=== PATIENT | female | born 1965 | race African-American/Black ===

== ENCOUNTER 2024-10-02 08:52 | Outpatient (CLI) | payer MEDICARE, MEDICAID, SELFPAY ==
--- NOTE | 2024-10-02 09:47 | ECG_ITS ---
Test Date: 2024-10-02 10:19:50 Measurements Intervals Perry Rate: 91 P: 21 VA: 160 QRS: -5 QRSD: 75 T: 11 QT: 369 QTc: 455 Interpretive Statements SINUS RHYTHM NONSPECIFIC T-WAVE ABNORMALITY No previous ECG available for comparison Electronically Signed On 10-02-2024 14:44:15 REALTIME REPORTER by Keyonna Pace M.D.
[2024-10-02 10:40] LABS: Hemoglobin 12.6 g/dL (12.0-15.0); Mean Corpuscular HGB Conc 31.5 g/dl (32-36); Mean Corpuscular Hemoglobin 29.6 pg (26-34); Mean Corpuscular Volume 94.1 fl (80-100); Mean Platelet Volume 11.5 fl (7.4-10.4); Platelet Count Result 177 k/mm3 (150-375); Red Blood Count 4.25 M/mm3 (4.2-5.4); Red Cell Distribution Width 12.9 % (11.5-14.5); White Blood Count 5.1 K/mm3 (4.5-10.0)
[2024-10-02 10:47] LABS: Anion Gap 1 mmol/L (4-12); Blood Urea Nitrogen 12 mg/dL (7-17); Calcium 8.9 mg/dL (8.4-10.2); Carbon Dioxide 33 mmol/L (22-30); Chloride 104 mmol/L (98-107); Estimated Glomerular Filt Rate > 60; Glucose 92 mg/dL (65-110); Potassium 3.9 mmol/L (3.4-5.0); Sodium 138 mmol/L (137-145)
[2024-10-02 10:53] LABS: Add Urine Microscopic? NO; Appearance Urine Clear (Clear); Bilirubin Urine Negative (Negative); Blood Urine Negative (Negative); Color Urine Yellow (Yellow); Glucose Urine UA Negative (Negative); Ketones Urine Negative (Negative); Leukocyte Esterase Ur Negative LEU/UL (Negative); Nitrate Urine Negative (Negative); Protein Urine Negative (Negative); Specific Grav Ur 1.011 (1.001-1.035)
[2024-10-02 10:59] LABS: Prothrombin Time 13.1 Seconds (11.1-14.7)
[2024-10-02 11:00] LABS: Partial Thromboplastin Time 26.7 Seconds (22.3-36.8)
[2024-10-02 12:03] LABS: Phenytoin Dilantin < 3 ug/mL (10-20)
== END 2024-10-02 08:53 | disposition home or self-care (01) ==
LOC: ANHSURGERY 08:56
PROVIDERS: Anesthesiology; PCP Internal Medicine Infectious Disease; Visit Provider Neurological Surgery
DX: Z01.818 Encounter for other preprocedural examination (principal); G95.9 Disease of spinal cord, unspecified; G40.909 Epilepsy, unspecified, not intractable, without status epilepticus; Z87.891 Personal history of nicotine dependence; Z79.899 Other long term (current) drug therapy
CPT/HCPCS: 36415; 80048; 80185; 81003; 85027; 85610; 85730; 93005

== ENCOUNTER 2024-10-23 14:28 | Inpatient (IN) | payer MEDICARE, MEDICAID, SELFPAY ==
[2024-10-02 09:18] VITALS: BP 118/86; PULSE 96; RESP 16; TEMP 37.2; O2SAT 98; BMI 27.6
--- NOTE | 2024-10-02 09:39 | PC.NURSE ---
Report to the Outpatient Waiting Room, entrance under the green pavilion located off [facility], at time _0800am on date __10/23/24 . Planned Procedure Time: ___1000am .? Time changes happen often and if your time is changed the preop area will call you the afternoon before. - You and your visitor will be asked to self-screen and do not enter if you have any COVID symptoms. Please call surgeon if you need to reschedule. - A mask is optional within the hospital at this time. Patients may have clear liquids (water, carbonated beverages, clear teas, apple juice) until 3 hours prior to surgery with a maximum of 20 ounces. - No food from midnight until time of surgery and no smoking. This includes no chewing gum, candy or mints. (0700) Take only the following medications with a SIP of water on the morning of surgery: Gabapentin, Dilantin, Levtiracetam, Tizanidine if needed, Tramadol if needed DO NOT STOP ANY OF YOUR OTHER PRESCRIPTION MEDICATIONS PRIOR TO SURGERY EXCEPT THE FOLLOWING Medications to discontinue per physician ____Aspirin instructions per Dr. Woods-Pt will call their office today after testing to clarify. Date to take last dose Per Dr. Woods instructions Please no make-up, nail welsh, hairspray, perfume, deodorant, or body powder the day of surgery.? No jewelry (including any body piercings) or valuables the day of surgery, leave them at home.? Please take a shower or bath the night before, or the morning of, surgery with an antibacterial soap.? Wear comfortable, loose fitting clothing.? - Jewelry must be removed prior to entering the operating room.? Rings and piercings that are not removed may be cut off. - The hospital will not accept responsibility for valuables.? - Please leave all valuables, including medications, at home the day of surgery. If you are going home after surgery, a licensed bobcat driver/labor must drive you home.? - NO public transportation without another adult if you receive anesthesia. PT AWARE SHE NEEDS TO ARRANGE A LEGAL ATOMIC PROCESS ENGINEER RIDE THE DAY OF DC. - We recommend that an adult stay with you for 24 hours following discharge. - We also recommend that you do not drive, make important decision, drink alcoholic beverages, or take any drugs that were not prescribed by your health care provider for at least 24 hours after your discharge time. Follow any additional instructions given to you from your surgeon. Telephone instructions given to __Patient and asked if any additional questions and then verbalized understanding. Patient advised to call surgeon office or pre surgery nurse liaison [phone] if any additional questions.
[2024-10-23] VITALS (11 sets, daily range): BP systolic 107–146; BP diastolic 68–97; PULSE 79–93; RESP 16–20; TEMP 35.8–36.8; O2SAT 96–100; BMI 27.1
--- NOTE | ~2024-10-23 | XR_ITS ---
XR chest 1V portable Ordering provider: Concetta Levine MD History: 59 years Female with . Fever . Comparison: 07/05/2004 FINDINGS: MEDIASTINUM: The cardiac silhouette is not enlarged. LUNGS: No infiltrates, effusions or pneumothorax. OTHER: No free air under the diaphragm. Degenerative changes of the spine. IMPRESSION: No acute cardiopulmonary pathology. Reviewed, dictated and finalized at location A. MAKING MACHINE OPERATOR
--- NOTE | ~2024-10-23 | XR_ITS ---
INTRAOPERATIVE FLUOROSCOPY: CLINICAL HISTORY: 59 years old Female; POSTERIOR CERV DECOMPRESSION FUSION C3-6 PROCEDURE COMMENTS: Limited intraoperative fluoroscopy of the cervical spine was performed. DOSE AREA PRODUCT: .168 Gy-cm2 FLUOROSCOPY TIME: 8 seconds FINDINGS/IMPRESSION: Please refer to operative note for further details. Reviewed, dictated and finalized at location A. NSION ENVELOPE MAKER HAND
--- NOTE | 2024-10-23 08:03 | P.PNAN_ITS ---
Anes - Eval Pre Procedure Procedure: Operation Date: 10/23/24 10:00 Proposed Procedures p Posterior Cervical Decompression and Fusion C3-6 - Concetta Woods MD Date/Time: 10/23/24 08:03 Surgeon: Chuck Pre Op Diagnosis: cervical myelopathy, cervical kyphosis Patient Data Age: 59 Gender: F Height: 1.68 m Weight: 77.6 kg Last Vital Signs Temp 99 F 10/02/24 09:18 Pulse 96 10/02/24 09:18 Resp 16 10/02/24 09:18 BP 118/86 10/02/24 09:18 Pulse Ox 98 10/02/24 09:18 O2 Del Method Room Air 10/02/24 09:18 Allergies Allergy/AdvReac Type Severity Reaction Status Date / Time No Known Allergies Allergy Unknown Verified 10/02/24 09:14 Home Medications ?Medication ?Instructions ?Recorded ?Confirmed ?Type aspirin 81 mg tablet,delayed 81 mg PO DAILY 07/11/24 10/02/24 History release (Adult Low Dose Aspirin) furosemide 20 mg tablet 20 mg PO QAM 07/11/24 10/02/24 History gabapentin 100 mg capsule 100 mg PO TID 07/11/24 10/02/24 History levetiracetam 1,000 mg tablet 1,000 mg PO Q12H 07/11/24 10/02/24 History phenytoin sodium extended 100 mg 100 mg PO TID 07/11/24 10/02/24 History capsule potassium chloride 10 mEq 10 meq PO DAILY 07/11/24 10/02/24 History tablet,extended release rosuvastatin 20 mg tablet 20 mg PO DAILY 07/11/24 10/02/24 History tramadol 50 mg tablet 50 mg PO Q6H PRN pain 07/11/24 10/02/24 History trazodone 50 mg tablet 50 mg PO QHS PRN sleep 07/11/24 10/02/24 History tizanidine 4 mg capsule 4 mg PO TID PRN muscle spasticity 08/28/24 10/02/24 Rx #30 caps Patient hx anesthesia problems: none Family hx anesthesia problems: none Results Review: All pre-operative results and documents have been reviewed as part of the pre- operative evaluation. [facility] Past Medical History Medical History History of smoking Hyperlipidemia Lumbago Epilepsy Cervical myelopathy Cervical kyphosis Stroke Seizure Surgical History Surgical History History of appendectomy History of hysterectomy Family History Family History Mother Hypertension Sibling History of cancer Social History Social History (Updated 08/14/24 @ 15:08 by Char Hamilton CMA) Smoking packs per day: 1 Smoking cigarettes per day: 20.0 Years smoked: 1 Smoking pack-years: 1.00 Smoking status: Former smoker Tobacco type: cigarettes Smoking end date: 10/16/82 Additional smoking assessment comments: Denies Alcohol intake: current Alcohol use details: 1 per 6 mos Substance use: never Substance use type: does not use Do You Feel Safe in your Home?: No Lack of Transportation: No Lack of Food: Often True Current Housing: I Have Housing Concerned About Future Housing: YES Difficulty Paying Gas/Electric Bills: YES Difficulty Paying for Meds: No Currently Unemployed: No Education: High School Diploma/GED Difficulty w/ Childcare or Family Care: No Living arrangements: alone Spiritual care concerns: No Comments SR VR 91 Last seizure / grand mal Exam Day of Procedure 10/23/24 08:03 Patient weight: overweight
[2024-10-23] MEDS: LACTATED RINGERS 1,000 ML 30 ML IV CONT ×2 (09:30→12:50)
--- NOTE | 2024-10-23 09:30 | P.HP_ITS ---
H&P: HPI History of Present Illness Date/Time: 10/23/24 09:30 Chief Complaint: cervical myelopathy Narrative: From 07/11: Ms. Campbell is a 59-year-old female with history of a stroke in 2005 as well as seizures who was referred for stenosis of her cervical spine. The patient has a poor memory and is unaccompanied today. She is unsure why her doctor got the MRI of her cervical spine but does indicate that she occasionally has some neck pain from time to time. However, the imaging was apparently performed due to the patient falling on a more frequent basis because of her legs giving out on her. She does report some balance issues. She has some residual left-sided weakness and paresthesias from her stroke which she denies any worsening of recently. She denies any new radicular pain, paresthesias, or weakness of her right side. She denies any bowel or bladder changes. 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 She is now able to walk unaccompanied. She has had seizures since her stroke for which she takes both Keppra and Dilantin. She apparently is compliant with these medications but continues to have seizures from time to time. This is managed by her primary care physician, although she is scheduled to see a neurologist next month. She lives alone and cares for herself independently. She does seem to have quite a bit of difficulty remembering information about her medical history and her presenting symptoms. She indicated that her has , and while she has several children, some are apparently deployed in and one is recovering from a possible spinal cord injury from a gunshot wound. She does take a baby aspirin daily. She does not smoke. From 08/14: Since her last visit, she reports some worsening of her balance. She does report some urinary urgency and frequency symptoms which are new. She denies any other new symptoms. Review of Systems Review of Systems: All systems reviewed & are unremarkable except as noted in HPI and below PMFSH Past Medical History Medical History (Updated 10/23/24 @ 08:10 by Fred Kohli Jr., CHOIR LEADER) History of smoking Hyperlipidemia Lumbago Epilepsy Cervical myelopathy Cervical kyphosis Stroke Seizure Surgical History Surgical History History of appendectomy History of hysterectomy Family History Family History Mother Hypertension Sibling History of cancer Social History Social History (Updated 08/14/24 @ 15:08 by Char Hamilton CMA) Smoking packs per day: 1 Smoking cigarettes per day: 20.0 Years smoked: 1 Smoking pack-years: 1.00 Smoking status: Former smoker Tobacco type: cigarettes Smoking end date: 10/16/82 Additional smoking assessment comments: Denies Alcohol intake: current Alcohol use details: 1 per 6 mos Substance use: never Substance use type: does not use Do You Feel Safe in your Home?: No Lack of Transportation: No Lack of Food: Often True Current Housing: I Have Housing Concerned About Future Housing: YES Difficulty Paying Gas/Electric Bills: YES Difficulty Paying for Meds: No Currently Unemployed: No Education: High School Diploma/GED Difficulty w/ Childcare or Family Care: No Living arrangements: alone Spiritual care concerns: No Meds Home Medications and Allergies Home Medications ?Medication ?Instructions ?Recorded ?Confirmed ?Type aspirin 81 mg tablet,delayed 81 mg PO DAILY 07/11/24 10/02/24 History release (Adult Low Dose Aspirin) furosemide 20 mg tablet 20 mg PO QAM 07/11/24 10/02/24 History gabapentin 100 mg capsule 100 mg PO TID 07/11/24 10/02/24 History levetiracetam 1,000 mg tablet 1,000 mg PO Q12H 07/11/24 10/02/24 History phenytoin sodium extended 100 mg 100 mg PO TID 07/11/24 10/02/24 History capsule potassium chloride 10 mEq 10 meq PO DAILY 07/11/24 10/02/24 History tablet,extended release rosuvastatin 20 mg tablet 20 mg PO DAILY 07/11/24 10/02/24 History tramadol 50 mg tablet 50 mg PO Q6H PRN pain 07/11/24 10/02/24 History trazodone 50 mg tablet 50 mg PO QHS PRN sleep 07/11/24 10/02/24 History tizanidine 4 mg capsule 4 mg PO TID PRN muscle spasticity 08/28/24 10/02/24 Rx #30 caps Allergies Allergy/AdvReac Type Severity Reaction Status Date / Time No Known Allergies Allergy Unknown Verified 10/23/24 09:25 Exam Narrative: Positive Laguerre's bilaterally Diffuse left-sided weakness 4-/5 AOx4 Decreased sensation to light touch in left face, arm, and leg 3+ patellar reflexes Unless otherwise stated above, the patient's physical exam is as follows: General: -Well developed and well nourished. No a cute distress. Cooperative with exam. Mental status: -Awake and oriented to person, place, an d time. Affect is normal. -Fund of knowledge appropriate -Recent and remote memory are intact -Attention span and concentration appear normal -Language function is normal -There is no evidence of aphasia in conv ersational speech. Cranial nerves: -CN II: Visual morales full to bedside co nfrontation -CN III, IV, : Pupils equal, round, an d reactive to light; extraocular movements, no ptosis, no nystagmus -CN V: Facial sensation intact in V1 thr ough V3 distributions -CN VII: Face symmetric -CN VIII: Hearing intact to conversation al speech -CN IX, X: Palate elevates symmetrically ; normal phonation -CN XI: Symmetric full strength of pollard ocleidomastoid and trapezius muscles -CN XII: Tongue protrudes midline Integumentary: -No obvious skin lesions or masses Motor: -Muscle tone normal without spasticity o f flaccidity. No atrophy. No fasciculations. -No pronator drift -Right upper extremity: deltoid 5/5, bic eps 5/5, triceps 5/5, wrist extensors 5/5, wrist flexors 5/5, intrinsics 5/5 -Left upper extremity: deltoid 5/5, maria fernanda ps 5/5, triceps 5/5, wrist extensors 5/5, wrist flexors 5/5, intrinsics 5/5 -Right lower extremity: iliopsoas 5/5, q uadriceps 5/5, hamstrings 5/5, tibialis anterior 5/5, gastroc-soleus 5/5, EHL 5/5 -Left lower extremity: iliopsoas 5/5, qu adriceps 5/5, hamstrings 5/5, tibialis anterior 5/5, gastroc-soleus 5/5, EHL 5/5 Sensory: -Intact to light touch throughout -Normal proprioception throughout Reflexes: -1-2+ DTR's throughout -No Laguerre's, clonus, or Babinski bilat erally Musculoskeletal: -Symmetric; no deformities, masses or te nderness; no known fractures -Cervical spine: no tenderness to palpat ion, no pain, and normal cervical spine movements. Normal cervical lordosis -Spurling's test negative -Tinel's sign negative -Shoulder: no pain on provocative testin g bilaterally -Elbow: no instability, subluxation, or laxity bilaterally I personally reviewed the MRI cervical spine in PACS which shows severe central stenosis at C3-4 and C4-5. There is a grade 1 spondylolisthesis of C4 on C5 I personally reviewed the CT cervical spine that shows an auto fusion at C4-5 with slight kyphosis throughout the cervical spine Assessment and Plan Assessment and plan (1) Cervical myelopathy: Code(s): G95.9 - Disease of spinal cord, unspecified Status: Acute (2) Cervical kyphosis: Code(s): M40.202 - Unspecified kyphosis, cervical region Status: Acute Plan Ms. Campbell is a 59-year-old female with history of a stroke with residual left- sided deficits as well as seizures who presents with increasing falls and frequency of her legs giving out. She also reports development of urinary urgency and frequency. On physical exam, she does have a Laguerre's reflex bilaterally and hyperreflexia in her lower extremities. She is diffusely weak from her stroke on the left side and has decreased sensation to light touch throughout the left side as well. MRI cervical spine shows severe central stenosis at C3-4 from a disc herniation as well as severe stenosis at C4-[address] cervical spine shows auto fusion at C4-5 anteriorly and along the facets on the left side. Therefore, I would recommend surgery in the form of posterior cervical decompression and fusion C3-6. We reviewed her images together and discussed surgery in detail including risks, expected recovery, and restrictions after surgery. She would like to proceed as discussed. We discussed that the goal of surgery is to prevent her symptoms from worsening.
--- NOTE | 2024-10-23 09:32 | WPDHPUPDATE1 ---
History and Physical Update Update Date/Time: 10/23/24 09:32 History and Physical has been reviewed, including an updated exam of the patient. There are NO changes in the patient's condition. Risks, benefits, and alternatives have been discussed and questions answered. Patient agrees to proceed with procedure.
--- NOTE | 2024-10-23 09:51 | P.PNAN_ITS ---
Anes - Eval Final PreProcedure Day of Procedure 10/23/24 09:51 Patient weight: overweight Heart: regular rate and rhythm Lungs: clear to auscultation and normal air movement Airway: Mallampati scale class II Neurological: alert and oriented and other (Pt had a stroke in the past requiring complete rehab (learning everything again), since the CVA seizures are present ) Last oral intake: >/= 8 hours ASA classification: III Emergent: no Anesthetic plan: proceed Anesthesia type and monitoring: general ETT Results Review: All pre-operative results and documents have been reviewed as part of the pre- operative evaluation. Informed Consent: The patient's anesthetic plan and its attendant risks and benefits were discussed with the patient/family/POA. Questions were solicited and answers provided to the satisfaction of the patient/family/POA.
[2024-10-23] MEDS: ceFAZolin 2 GM/D5W 50 ML 2 GM/50 ML BAG IVPB (09:59)
[2024-10-23] MEDS: BUPIVACAINE/EPINEPHRINE 0.5% 50 ML VIAL 30 ML INFILTRATE (10:51)
--- NOTE | 2024-10-23 12:49 | PM.OP ---
Procedure Note - Brief Procedure Note - Brief Date of procedure: 10/23/24 cervical myelopathy, cervical kyphosis Post-op diagnosis: Same Procedure performed: Posterior cervical arthrodesis C3-6 Cervical laminectomies C3, C4, and C5 Use of C-arm for fluoroscopy Surgeon: Concetta Woods MD Anesthesia: GETA Findings: PCDF C3-6 without complication Estimated blood loss (mL): 50 Drains: Yes Packing: No Pathology: None sent Complications: None Condition: Stable Disposition: PACU
--- NOTE | 2024-10-23 12:56 | W.PM.PROC2 ---
Procedure Note - Detailed Date of Procedure 10/23/24 Pre-op Diagnosis cervical myelopathy, cervical kyphosis Post-op Diagnosis Same Procedure Performed 1. C3, C4, C5, and C6 lateral mass instrumentation 2. C3-4, C4-5, and C5-6 arthrodesis with autograft and allograft 3. C3, C4, and C5 laminectomies 4. Use of C-arm for fluoroscopy Surgeon Concetta Woods MD Real Estate Lawyer [place] Anesthesia General Indications Ms. Campbell is a 59-year-old female with history of a stroke with residual left-sided deficits as well as seizures who presents with increasing falls and frequency of her legs giving out. She also reports development of urinary urgency and frequency. On physical exam, she does have a Laguerre's reflex bilaterally and hyperreflexia in her lower extremities. She is diffusely weak from her stroke on the left side and has decreased sensation to light touch throughout the left side as well. MRI cervical spine shows severe central stenosis at C3-4 from a disc herniation as well as severe stenosis at C4-[address] cervical spine shows auto fusion at C4-5 anteriorly and along the facets on the left side. Therefore, I would recommend surgery in the form of posterior cervical decompression and fusion C3-6. We reviewed her images together and discussed surgery in detail including risks, expected recovery, and restrictions after surgery. She would like to proceed as discussed. We discussed that the goal of surgery is to prevent her symptoms from worsening. Risks include bleeding, pain, infection, CSF leak, spinal cord or nerve damage, pseudoarthrosis, hardware malpositioning, weakness, paresthesias, paralysis, and anesthetic complication. She provided written informed consent to proceed. Description of Procedure The patient was brought to the operating room where endotracheal anesthesia was induced. The [place] headholder was applied, and the patient was transferred to the operating table in the prone position. The head was secured to the bed. All pressure points were padded. The C-arm was used to evaluate the planned incision. The planned surgical site was prepped and draped in usual sterile fashion. Time out was conducted, and local anesthesia was injected. A 10-blade scalpel was used to make the incision. The subcutaneous tissue was dissected with the bovie until the spinous processes were encountered. Self-retaining retractors were placed. A clamp was placed on a spinous process which was confirmed to be the C3 level with the C-arm. The incision was extended inferiorly to better expose down to the inferior level. The muscles were elevated in a subperiosteal fashion to expose the laminae and lateral masses of C3 through C6 bilaterally. The facet joints were exposed and defined with the bovie, and the airplane pilot holes for the lateral mass screws were created with the high-speed drill. On the right side, the hand drill was used to drill through the lateral mass to a depth of 12mm at C3. The trajectory was palpated with a ball-tip probe to ensure where were no breeches in the bone. The drill was then lengthened to 14mm. The 3.0mm tap was then passes. This was repeated at C4, C5, and C6. Bone wax was placed over the screw holes. This was then repeated on the left side at C3, C4, C5, and C6. The left facets of C4 and C5 were autofused, so a portion of this bone was removed with a Leksell in order to allow for accurate placement of the lateral mass screws. We then turned our attention to the laminectomies. The high-speed drill was used to create a trough through the laminae of C3, C4, and C5. The posterior elements were elevated with a Leksell and Kerrison rongeurs, and the bone was passed off to be morselized for autograft. The ligamentum flavum was elevated with the bone. Small residual pieces of ligamentum and bone were removed with the kerrison. The facet joints were decorticated with the drill.? We ensured hemostasis with the bipolar and Floseal. We next turned our attention to the lateral mass screws. The screw trajectories were palpated again with the balltip probe. 14 x 3.5mm screws were placed at each level bilaterally. 50mm rods were placed bilaterally. The set screws were placed which were final tightened. The area was copiously irrigated. The bone and facets were decorticated. Magnetos and morselized autograft were placed lateral to the screws bilaterally and into the facets. A hemovac drain was placed in the epidural space and tunneled inferiorly. The muscle was approximated with 0 vicryl. The fascia was closed with 0 vicryl as well. The dermis was closed with 2-0 and 3-0 vicryl. The skin was closed with running 3-0 nylon. The drain was secured with a nylon as well. Sterile dressings were placed. The patient was then removed from the [place] headholder and returned supine. The patient was extubated and transferred to the PACU in stable condition. Billing codes: 77232, 40516, 63964 x 2, 44372 Estimated Blood Loss 50 Drains Yes Packing No Pathology None sent Complications None Condition Stable Disposition PACU [facility] Billing Surgery - Charge Forward: Surgery Billing
[2024-10-23] MEDS: fentaNYL CITRATE INJ (*CRX) 100 MCG/2 ML VIAL 25 MCG IV PUSH ×2 (13:04→13:13)
[2024-10-23] MEDS: HYDROmorphone HCL INJ (*CRX) 1 MG/ML SYR 0.25 MG IV PUSH ×3 (13:20→13:47)
--- NOTE | 2024-10-23 14:32 | ADMGEN ---
This patient, Nas Campbell, was admitted to Medical Room 257-01. Patient/family oriented to hospital policies and general routines including ID bracelet, bed and alarms, visiting hours, pain management, procedures, bathroom and other care routines, personal items, smoking policy, room service/diet, and visiting hours. Information on how to activate the Rapid Response Team has been discussed. Patient/Family are encouraged to report perceived risks to care and to ask questions if they do not understand what they are told or what they should do.
[2024-10-23] MEDS: SODIUM CHLORIDE 0.9% IV 1,000 ML 100 ML IV CONT (14:55)
[2024-10-23] MEDS: MORPHINE SULFATE (*CRX) 2 MG/ML INJ IV PUSH (14:55)
[2024-10-23] MEDS: ACETAMINOPHEN 500 MG TABLET 1000 MG PO ×2 (16:14→21:32)
[2024-10-23] MEDS: PHENYTOIN SODIUM 100 MG EXTENDED RELEASE CAP PO (16:15)
[2024-10-23] MEDS: GABAPENTIN 100 MG CAPSULE PO (16:15)
[2024-10-23] MEDS: oxyCODONE HCL (*CRX) 5 MG TAB IR 10 MG PO ×2 (16:15→21:53)
[2024-10-23] MEDS: ceFAZolin 1 GM/NS 50 ML 1 GM/50 ML BAG IVPB (18:14)
[2024-10-23] MEDS: DOCUSATE SODIUM 100 MG CAPSULE PO (21:32)
[2024-10-23] MEDS: levETIRAcetam 500 MG TABLET 1000 MG PO (21:33)
[2024-10-24] VITALS: BP 121/74; PULSE 88; RESP 18; TEMP 36.5; O2SAT 97
[2024-10-24] MEDS: ceFAZolin 1 GM/NS 50 ML 1 GM/50 ML BAG IVPB ×3 (01:41→17:01)
[2024-10-24] MEDS: oxyCODONE HCL (*CRX) 5 MG TAB IR 10 MG PO ×5 (01:59→20:18)
[2024-10-24] MEDS: CYCLOBENZAPRINE HCL 10 MG TABLET PO ×2 (02:58→16:24)
[2024-10-24] MEDS: ACETAMINOPHEN 500 MG TABLET 1000 MG PO ×4 (03:03→21:43)
[2024-10-24 04:00] VITALS: BP 131/70; PULSE 64; RESP 18; TEMP 36.3; O2SAT 98
[2024-10-24 07:50] VITALS: BP 148/88; PULSE 89; RESP 16; TEMP 36.3; O2SAT 98
[2024-10-24] MEDS: GABAPENTIN 100 MG CAPSULE PO ×3 (10:16→16:24)
[2024-10-24] MEDS: POTASSIUM CHLORIDE 10 MEQ ER TABLET PO (10:16)
[2024-10-24] MEDS: levETIRAcetam 500 MG TABLET 1000 MG PO ×2 (10:16→20:15)
[2024-10-24] MEDS: ROSUVASTATIN 20 MG TABLET PO (10:17)
[2024-10-24] MEDS: FUROSEMIDE 20 MG TABLET PO (10:17)
[2024-10-24] MEDS: DOCUSATE SODIUM 100 MG CAPSULE PO ×2 (10:17→20:20)
[2024-10-24] MEDS: PHENYTOIN SODIUM 100 MG EXTENDED RELEASE CAP PO ×3 (10:17→16:24)
[2024-10-24 11:50] VITALS: BP 108/70; PULSE 104; RESP 18; TEMP 36.6; O2SAT 99
--- NOTE | 2024-10-24 14:31 | WPDANESPN ---
Anes - Prog Note Post-Op Date/Time: 10/24/24 14:31 Vital Signs: Last Vital Signs Temp 36.3 C L 10/24/24 07:50 Pulse 89 10/24/24 07:50 Resp 16 10/24/24 07:50 BP 148/88 H 10/24/24 07:50 Pulse Ox 98 10/24/24 07:50 O2 Del Method Room Air 10/23/24 20:00 O2 Flow Rate 6 10/23/24 13:35 Pain Score (VAS): 2 I/O: Intake & Output 10/23/24 10/24/24 10/24/24 23:59 07:59 15:59 Intake Total 898.3 50 290 Output Total 1450 1470 Balance -551.7 -1420 290 Patient Feedback: Patient satisfied with anesthetic care.
--- NOTE | 2024-10-24 15:03 | WPDNEUROSGPN ---
Progress Note: A&P Assessment and Plan (1) Cervical myelopathy: Code(s): G95.9 - Disease of spinal cord, unspecified Status: Acute (2) Status post cervical arthrodesis: Code(s): Z98.1 - Arthrodesis status Status: Acute Plan -Remove hemovac drain this afternoon -PT/OT recommend discharge to SNF -She can discharge from my standpoint as soon as she is accepted to a facility -Start DVT ppx tonight -Dressing off tomorrow; she can shower and get her incision wet starting tomorrow -Follow up with me in 2 weeks for suture removal Subjective Date/time seen: 10/24/24 12:30 Interval history: She is doing relatively well today. She had some significant neck pain overnight, but this is improved. The therapist yesterday thought she would benefit from soft collar which she has been wearing and has found helpful. She is eating well. She has been mobilizing with assistance of therapy. She has no specific concerns or complaints today. Review of Systems Review of Systems: All systems reviewed & are unremarkable except as noted in HPI and below Exam Narrative: Alert and oriented Wearing soft collar Small amount of sanguinous drainage on dressing HV 70cc out today Left arm and leg weakness, baseline due to previous stroke Right arm and leg full strength Decreased sensation to light touch throughout left side, also baseline Objective Data Vital Signs Vital Signs: Vital Signs - 24 hr 10/23/24 15:29 10/23/24 15:35 10/23/24 20:00 Temperature 98.1 F Pulse Rate 82 Respiratory Rate 18 Blood Pressure 120/68 Pulse Oximetry 100 Oxygen Delivery Room Air Room Air 10/23/24 20:00 10/24/24 00:00 10/24/24 04:00 Temperature 97.9 F 97.7 F 97.4 F L Pulse Rate 93 88 64 Respiratory Rate 20 18 18 Blood Pressure 124/72 121/74 131/70 Pulse Oximetry 99 97 98 Oxygen Delivery 10/24/24 07:50 Temperature 97.4 F L Pulse Rate 89 Respiratory Rate 16 Blood Pressure 148/88 H Pulse Oximetry 98 Oxygen Delivery Intake/Output Intake/Output: Intake & Output 10/21/24 10/22/24 10/23/24 10/24/24 23:59 23:59 23:59 23:59 Intake Total 948.3 580 Output Total 1500 1470 Balance -551.7 -890 Meds/Results Medications: Active Medications Generic Name Dose Route Start Last Admin Trade Name Freq PRN Reason Stop Dose Admin Acetaminophen 1,000 mg 10/23/24 16:00 10/24/24 10:16 Acetaminophen 500 Mg Tablet PO 1,000 mg Q6H YOBANI Administration Al Hydrox/Mg Hydrox/Simethicone 20 ml 10/23/24 12:50 Mag Hydrox/Al Hydrox/Simeth 30 Ml Udc PO Q4H PRN Indigestion/Heartburn Bisacodyl 10 mg 10/23/24 12:50 Bisacodyl 10 Mg Suppository RECTAL DAILY PRN Constipation Cyclobenzaprine HCl 10 mg 10/23/24 12:50 10/24/24 02:58 Cyclobenzaprine Hcl 10 Mg Tablet PO 10 mg TID PRN Administration Muscle Spasms Docusate Sodium 100 mg 10/23/24 21:00 10/24/24 10:17 Docusate Sodium 100 Mg Capsule PO 100 mg Q12HR YOBANI Administration Furosemide 20 mg 10/24/24 09:00 10/24/24 10:17 Furosemide 20 Mg Tablet PO 20 mg QAM YOBANI Administration Gabapentin 100 mg 10/23/24 17:00 10/24/24 12:41 Gabapentin 100 Mg Capsule PO 100 mg TID YOBANI Administration Cefazolin Sodium 1 gm in 50 mls @ 100 mls/hr 10/23/24 18:00 10/24/24 10:47 Ancef 1 Gm/Ns 50 Ml IVPB Infused Q8H YOBANI Infusion Sodium Chloride 1,000 mls @ 100 mls/hr 10/23/24 12:50 10/23/24 21:00 Normal Saline Iv IV CONT 30 mls/hr .Q10H YOBANI Infusion Levetiracetam 1,000 mg 10/23/24 21:00 10/24/24 10:16 Levetiracetam 500 Mg Tablet PO 1,000 mg Q12HR YOBANI Administration Morphine Sulfate 2 mg 10/23/24 12:50 10/23/24 14:55 Morphine Sulfate (*Crx) 2 Mg/Ml Inj IV PUSH 2 mg Q2H PRN Administration Breakthrough Pain Ondansetron HCl 4 mg 10/23/24 12:50 Ondansetron Inj 4 Mg/2 Ml Vial IV PUSH Q8H PRN Nausea And Vomiting Oxycodone HCl 10 mg 10/23/24 12:50 10/24/24 14:06 Oxycodone Hcl (*Crx) 5 Mg Tab Ir PO 10 mg Q4H PRN Administration Pain Rated 7-10 Oxycodone HCl 5 mg 10/23/24 12:50 Oxycodone Hcl (*Crx) 5 Mg Tab Ir PO Q4H PRN Pain Rated 4-6 Phenytoin Sodium 100 mg 10/23/24 17:00 10/24/24 12:41 Phenytoin Sodium 100 Mg Extended Release Cap PO 100 mg TID YOBANI Administration Potassium Chloride 10 meq 10/24/24 09:00 10/24/24 10:16 Potassium Chloride 10 Meq Er Tablet PO 10 meq DAILY YOBANI Administration Rosuvastatin Calcium 20 mg 10/24/24 09:00 10/24/24 10:17 Rosuvastatin 20 Mg Tablet PO 20 mg DAILY YOBANI Administration Senna/Docusate Sodium 1 tab 10/23/24 12:50 Senna/Docusate Sodium Tablet PO HS PRN Constipation Trazodone HCl 50 mg 10/23/24 12:53 Trazodone Hcl 50 Mg Tablet PO QHS PRN sleep
[2024-10-24 15:50] VITALS: BP 123/78; PULSE 97; RESP 18; TEMP 36.4; O2SAT 95
[2024-10-24 19:43] VITALS: BP 123/75; PULSE 99; RESP 16; TEMP 36.4; O2SAT 99
[2024-10-24] MEDS: traZODone HCL 50 MG TABLET PO (21:46)
[2024-10-25] MEDS: CYCLOBENZAPRINE HCL 10 MG TABLET PO ×2 (00:54→09:08)
[2024-10-25] MEDS: oxyCODONE HCL (*CRX) 5 MG TAB IR 10 MG PO ×5 (02:14→23:18)
[2024-10-25] MEDS: ACETAMINOPHEN 500 MG TABLET 1000 MG PO ×4 (03:57→21:59)
[2024-10-25 05:24] VITALS: BP 125/78; PULSE 114; RESP 16; TEMP 36.7; O2SAT 98
[2024-10-25] MEDS: levETIRAcetam 500 MG TABLET 1000 MG PO ×2 (09:08→20:32)
[2024-10-25] MEDS: GABAPENTIN 100 MG CAPSULE PO ×3 (09:08→17:05)
[2024-10-25] MEDS: PHENYTOIN SODIUM 100 MG EXTENDED RELEASE CAP PO ×3 (09:08→17:05)
[2024-10-25] MEDS: ENOXAPARIN 30 MG/0.3 ML SYRINGE SUB-Q (09:08)
[2024-10-25] MEDS: FUROSEMIDE 20 MG TABLET PO (09:08)
[2024-10-25] MEDS: POTASSIUM CHLORIDE 10 MEQ ER TABLET PO (09:09)
[2024-10-25] MEDS: DOCUSATE SODIUM 100 MG CAPSULE PO ×2 (09:09→20:32)
[2024-10-25] MEDS: ROSUVASTATIN 20 MG TABLET PO (09:09)
--- NOTE | 2024-10-25 09:53 | PCOTNOTE ---
The patient treatment was not able to be completed. Patient reports 10/10 pain. Will plan to continue treatment per plan of care.
--- NOTE | 2024-10-25 10:22 | PCPTNOTE ---
Patient refused treatment this session. Patient reported she wanted to get a shower before working with OT. Patient refused to work with PT before getting a shower.
--- NOTE | 2024-10-25 10:24 | PCPTNOTE ---
Patient refused treatment this session. Patient reported she wanted to get a shower before working with PT. Patient refused to work with PT before she got a shower.
--- NOTE | 2024-10-25 10:30 | WPDNEUROSGPN ---
Progress Note: A&P Assessment and Plan (1) Cervical kyphosis: Code(s): M40.202 - Unspecified kyphosis, cervical region Status: Acute Plan 59 year old female s/p posterior cervical decompression and fusion. Continue PT/OT/mobilization. Okay to shower at this point, but dry the wound after, no bathing or swimming. Dr. Woods has completed the discharge and the patient can go once case management has insurance approval for SNF/rehab. Subjective Date/time seen: 10/25/24 10:30 Interval history: Notes pain and stiffness in her neck and shoulders. Exam Narrative: Alert and oriented Wearing soft collar Left arm and leg weakness, baseline due to previous stroke Right arm and leg full strength Decreased sensation to light touch throughout left side, also baseline incision line c/d/i, nylon, dressing removed Objective Data Vital Signs Vital Signs: Vital Signs - 24 hr 10/24/24 11:50 10/24/24 15:50 10/24/24 19:43 Temperature 97.8 F 97.5 F L 97.6 F Pulse Rate 104 H 97 99 Respiratory Rate 18 18 16 Blood Pressure 108/70 123/78 123/75 Pulse Oximetry 99 95 99 Oxygen Delivery 10/24/24 20:00 10/25/24 05:24 Temperature 98.0 F Pulse Rate 114 H Respiratory Rate 16 Blood Pressure 125/78 Pulse Oximetry 98 Oxygen Delivery Room Air Intake/Output Intake/Output: Intake & Output 10/22/24 10/23/24 10/24/24 10/25/24 23:59 23:59 23:59 23:59 Intake Total 948.3 1261.7 240 Output Total 1500 1645 Balance -551.7 -383.3 240 Meds/Results Medications: Active Medications Generic Name Dose Route Start Last Admin Trade Name Freq PRN Reason Stop Dose Admin Acetaminophen 1,000 mg 10/23/24 16:00 10/25/24 09:09 Acetaminophen 500 Mg Tablet PO 1,000 mg Q6H YOBANI Administration Al Hydrox/Mg Hydrox/Simethicone 20 ml 10/23/24 12:50 Mag Hydrox/Al Hydrox/Simeth 30 Ml Udc PO Q4H PRN Indigestion/Heartburn Bisacodyl 10 mg 10/23/24 12:50 Bisacodyl 10 Mg Suppository RECTAL DAILY PRN Constipation Cyclobenzaprine HCl 10 mg 10/23/24 12:50 10/25/24 09:08 Cyclobenzaprine Hcl 10 Mg Tablet PO 10 mg TID PRN Administration Muscle Spasms Docusate Sodium 100 mg 10/23/24 21:00 10/25/24 09:09 Docusate Sodium 100 Mg Capsule PO 100 mg Q12HR YOBANI Administration Enoxaparin Sodium 30 mg 10/25/24 09:00 10/25/24 09:08 Enoxaparin 30 Mg/0.3 Ml Syringe SUB-Q 30 mg DAILY YOBANI Administration Furosemide 20 mg 10/24/24 09:00 10/25/24 09:08 Furosemide 20 Mg Tablet PO 20 mg QAM YOBANI Administration Gabapentin 100 mg 10/23/24 17:00 10/25/24 09:08 Gabapentin 100 Mg Capsule PO 100 mg TID YOBANI Administration Sodium Chloride 1,000 mls @ 100 mls/hr 10/23/24 12:50 10/25/24 07:33 Normal Saline Iv IV CONT Not Given .Q10H YOBANI Levetiracetam 1,000 mg 10/23/24 21:00 10/25/24 09:08 Levetiracetam 500 Mg Tablet PO 1,000 mg Q12HR YOBANI Administration Morphine Sulfate 2 mg 10/23/24 12:50 10/23/24 14:55 Morphine Sulfate (*Crx) 2 Mg/Ml Inj IV PUSH 2 mg Q2H PRN Administration Breakthrough Pain Ondansetron HCl 4 mg 10/23/24 12:50 Ondansetron Inj 4 Mg/2 Ml Vial IV PUSH Q8H PRN Nausea And Vomiting Oxycodone HCl 10 mg 10/23/24 12:50 10/25/24 06:40 Oxycodone Hcl (*Crx) 5 Mg Tab Ir PO 10 mg Q4H PRN Administration Pain Rated 7-10 Oxycodone HCl 5 mg 10/23/24 12:50 Oxycodone Hcl (*Crx) 5 Mg Tab Ir PO Q4H PRN Pain Rated 4-6 Phenytoin Sodium 100 mg 10/23/24 17:00 10/25/24 09:08 Phenytoin Sodium 100 Mg Extended Release Cap PO 100 mg TID YOBANI Administration Potassium Chloride 10 meq 10/24/24 09:00 10/25/24 09:09 Potassium Chloride 10 Meq Er Tablet PO 10 meq DAILY YOBANI Administration Rosuvastatin Calcium 20 mg 10/24/24 09:00 10/25/24 09:09 Rosuvastatin 20 Mg Tablet PO 20 mg DAILY YOBANI Administration Senna/Docusate Sodium 1 tab 10/23/24 12:50 Senna/Docusate Sodium Tablet PO HS PRN Constipation Trazodone HCl 50 mg 10/23/24 12:53 10/24/24 21:46 Trazodone Hcl 50 Mg Tablet PO 50 mg QHS PRN Administration sleep
--- NOTE | 2024-10-25 13:11 | PCPTNOTE ---
Patient refused treatment this session due to 10/10 neck pain. RN aware.
--- NOTE | 2024-10-25 15:04 | PCPTNOTE ---
Patient refused treatment this session due to 9/10 neck pain. Encouraged patient to participate with PT, patient continued to refuse.
[2024-10-25 20:00] VITALS: BP 101/73; PULSE 121; RESP 20; TEMP 36.7; O2SAT 98
[2024-10-25 20:30] VITALS: PULSE 121; RESP 20; O2SAT 98
[2024-10-26 04:34] VITALS: BP 101/67; PULSE 108; RESP 20; TEMP 36.8; O2SAT 97
[2024-10-26] MEDS: oxyCODONE HCL (*CRX) 5 MG TAB IR 10 MG PO ×5 (04:34→23:34)
[2024-10-26] MEDS: ACETAMINOPHEN 500 MG TABLET 1000 MG PO ×4 (04:34→22:08)
[2024-10-26] MEDS: DOCUSATE SODIUM 100 MG CAPSULE PO ×2 (09:07→20:35)
[2024-10-26] MEDS: ENOXAPARIN 30 MG/0.3 ML SYRINGE SUB-Q (09:07)
[2024-10-26] MEDS: ROSUVASTATIN 20 MG TABLET PO (09:07)
[2024-10-26] MEDS: POTASSIUM CHLORIDE 10 MEQ ER TABLET PO (09:07)
[2024-10-26] MEDS: FUROSEMIDE 20 MG TABLET PO (09:07)
[2024-10-26] MEDS: GABAPENTIN 100 MG CAPSULE PO ×3 (09:07→16:46)
[2024-10-26] MEDS: levETIRAcetam 500 MG TABLET 1000 MG PO ×2 (09:08→20:35)
[2024-10-26] MEDS: PHENYTOIN SODIUM 100 MG EXTENDED RELEASE CAP PO ×3 (09:08→16:46)
[2024-10-26] MEDS: CYCLOBENZAPRINE HCL 10 MG TABLET PO (09:10)
[2024-10-26 14:00] VITALS: BP 111/63; PULSE 116; RESP 16; TEMP 37.4; O2SAT 97
[2024-10-26 18:01] VITALS: TEMP 38.5
[2024-10-26 19:08] LABS: Hematocrit 39.7 % (37.0-47.0); Hemoglobin 12.9 g/dL (12.0-15.0); Mean Corpuscular HGB Conc 32.5 g/dl (32-36); Mean Corpuscular Hemoglobin 29.9 pg (26-34); Mean Corpuscular Volume 92.1 fl (80-100); Mean Platelet Volume 11.7 fl (7.4-10.4); Platelet Count Result 170 k/mm3 (150-375); Red Blood Count 4.31 M/mm3 (4.2-5.4); Red Cell Distribution Width 12.4 % (11.5-14.5); White Blood Count 7.8 K/mm3 (4.5-10.0)
[2024-10-26 19:16] LABS: Lactic Acid Reflex 1.1 mmol/L (0.7-2.0)
[2024-10-26 19:18] LABS: Alanine Aminotransferase 32 U/L (6-35); Alkaline Phosphatase 111 U/L (38-126); Anion Gap 5 mmol/L (4-12); Aspartate Amino Transferase 48 U/L (14-36); Bilirubin,Total 0.5 mg/dL (0.2-1.3); Blood Urea Nitrogen 11 mg/dL (7-17); Calcium 9.1 mg/dL (8.4-10.2); Carbon Dioxide 30 mmol/L (22-30); Chloride 98 mmol/L (98-107); Estimated CRCL calculation 68 ml/min; Estimated Glomerular Filt Rate > 60; Glucose 121 mg/dL (65-110); Potassium 3.9 mmol/L (3.4-5.0); Sodium 133 mmol/L (137-145)
[2024-10-26 20:30] VITALS: PULSE 116; RESP 16; O2SAT 97
[2024-10-26 21:04] LABS: Add Urine Microscopic? YES; Appearance Urine Clear (Clear); Bacteria Urine None Seen /hpf; Bilirubin Urine Negative (Negative); Blood Urine Negative (Negative); Color Urine Yellow (Yellow); Glucose Urine UA Negative (Negative); Ketones Urine Negative (Negative); Leukocyte Esterase Ur 2+ LEU/UL (Negative); Need Manual Microscopic Reviewed; Nitrate Urine Negative (Negative); Non Pathogenic Casts 0-2; Protein Urine Negative (Negative); Specific Grav Ur 1.018 (1.001-1.035); Squamous Epithelial Cell Urine None Seen /hpf (Few); Urobilinogen Urine 0.2 mg/dL (<2.0)
--- NOTE | 2024-10-26 21:05 | P.HP_ITS ---
H&P: HPI History of Present Illness Date/Time: 10/26/24 21:05 [facility] Past Medical History Medical History (Updated 10/23/24 @ 08:10 by Fred Kohli Jr., CRNA) History of smoking Hyperlipidemia Lumbago Epilepsy Cervical myelopathy Cervical kyphosis Stroke Seizure Surgical History Surgical History (Updated 10/24/24 @ 15:05 by Concetta Woods MD) History of appendectomy History of hysterectomy Family History Family History Mother Hypertension Sibling History of cancer Social History Social History (Updated 08/14/24 @ 15:08 by Char Hamilton CMA) Smoking packs per day: 1 Smoking cigarettes per day: 20.0 Years smoked: 1 Smoking pack-years: 1.00 Smoking status: Never smoker Tobacco type: cigarettes Smoking end date: 10/16/82 Additional smoking assessment comments: Denies Alcohol intake: never Alcohol use details: 1 per 6 mos Substance use: never Substance use type: does not use Do You Feel Safe in your Home?: No Lack of Transportation: No Lack of Food: Never True Current Housing: I Have Housing Concerned About Future Housing: No Difficulty Paying Gas/Electric Bills: No Difficulty Paying for Meds: No Currently Unemployed: No Education: Master's Degree or Higher Difficulty w/ Childcare or Family Care: No Living arrangements: alone Spiritual care concerns: No Meds Home Medications and Allergies Home Medications ?Medication ?Instructions ?Recorded ?Confirmed ?Type aspirin 81 mg tablet,delayed 81 mg PO DAILY 07/11/24 10/02/24 History release (Adult Low Dose Aspirin) furosemide 20 mg tablet 20 mg PO QAM 07/11/24 10/02/24 History gabapentin 100 mg capsule 100 mg PO TID 07/11/24 10/02/24 History levetiracetam 1,000 mg tablet 1,000 mg PO Q12H 07/11/24 10/02/24 History phenytoin sodium extended 100 mg 100 mg PO TID 07/11/24 10/02/24 History capsule potassium chloride 10 mEq 10 meq PO DAILY 07/11/24 10/02/24 History tablet,extended release rosuvastatin 20 mg tablet 20 mg PO DAILY 07/11/24 10/02/24 History tramadol 50 mg tablet 50 mg PO Q6H PRN pain 07/11/24 10/02/24 History trazodone 50 mg tablet 50 mg PO QHS PRN sleep 07/11/24 10/02/24 History tizanidine 4 mg capsule 4 mg PO TID PRN muscle spasticity 08/28/24 10/02/24 Rx #30 caps cyclobenzaprine 10 mg tablet 10 mg PO TID PRN Muscle Spasms 10 10/24/24 Rx days #30 tabs oxycodone 5 mg tablet 5 mg PO Q6H PRN Pain Rated 4-6 7 10/24/24 Rx days #28 tabs sennosides 8.6 mg-docusate sodium 1 tab PO BID Constipation 7 days 10/24/24 Rx 50 mg tablet (Senokot-S) #14 tabs Allergies Allergy/AdvReac Type Severity Reaction Status Date / Time No Known Allergies Allergy Unknown Verified 10/23/24 09:25 Vital Signs Vital Signs - 24 hr 10/26/24 04:34 10/26/24 14:00 10/26/24 18:01 Temperature 98.2 F 99.4 F 101.3 F H Pulse Rate 108 H 116 H Respiratory Rate 20 16 Blood Pressure 101/67 111/63 Pulse Oximetry 97 97 H&P: Results Labs Labs: Short CBC 10/26/24 Range/Units 18:59 WBC 7.8 (4.5-10.0) K/mm3 Hgb 12.9 (12.0-15.0) g/dL Hct 39.7 (37.0-47.0) % Plt Count 170 (150-375) k/mm3 BMP 10/26/24 18:59 Sodium 133 L Potassium 3.9 Chloride 98 Carbon Dioxide 30 BUN 11 Creatinine 0.72 Glucose 121 H Calcium 9.1 Liver Function 10/26/24 Range/Units 18:59 Total Bilirubin 0.5 (0.2-1.3) mg/dL AST 48 H (14-36) U/L ALT 32 (6-35) U/L Alkaline Phosphatase 111 (38-126) U/L Albumin 4.0 (3.5-5.1) g/dL Urine 10/26/24 Range/Units 20:40 Urine Color Yellow (Yellow) Urine Appearance Clear (Clear) Urine pH 6.0 (5.0-9.0) Ur Specific [place] 1.018 (1.001-1.035) Urine Protein Negative (Negative) mg/dL Urine Glucose (UA) Negative (Negative) mg/dL
[2024-10-26 22:30] VITALS: BP 127/83; PULSE 78; RESP 16; TEMP 36.7; O2SAT 98
[2024-10-26 23:45] VITALS: BP 109/74; PULSE 97; RESP 18; TEMP 37; O2SAT 99
--- NOTE | 2024-10-27 01:52 | PC.NURSE ---
patient refusing new IV placement and medication at this time. RN will attempt to place at a later time.
--- NOTE | 2024-10-27 02:11 | PM.IMCN ---
Assessment and Plan Assessment and plan (1) Fever: Code(s): R50.9 - Fever, unspecified Status: Acute Assessment and Plan: Sepsis workup in progress (2) UTI (urinary tract infection): Code(s): N39.0 - Urinary tract infection, site not specified Status: Acute Assessment and Plan: Patient started on Rocephin (3) Cervical myelopathy: Code(s): G95.9 - Disease of spinal cord, unspecified Status: Acute Assessment and Plan: Status post arthrodesis (4) Status post cervical arthrodesis: Code(s): Z98.1 - Arthrodesis status Status: Acute Assessment and Plan: Follow Neurosurgery recommendations (5) Seizure: Code(s): R56.9 - Unspecified convulsions Status: Acute Assessment and Plan: Continue home meds (6) Cervical kyphosis: Code(s): M40.202 - Unspecified kyphosis, cervical region Status: Acute Assessment and Plan: Status post arthrodesis (7) Epilepsy: Code(s): G40.909 - Epilepsy, unspecified, not intractable, without status epilepticus Status: Acute Assessment and Plan: Continue home meds HPI Date of Consult Consult date: 10/27/24 Requesting Physician: Concetta Woods MD Primary Care Provider: Remington CorleyBeau Consult Narrative Reason for consult: Fever Narrative: Nas Campbell is a 59 year old female with past medical history significant for cervical kyphosis, patient is status post cervical arthrodesis postop day 3, former tobacco user, looking about, epilepsy, cervical myopathy, stroke, seizure, hemiparesis. We are requested to see patient in consult after having a fever. Preliminary workup was significant for urinalysis with 6-10 WBCs present. At the time of my visit patient was complaining of neck pain. XR chest 1V portable Ordering provider: Concetta Levine MD History: 59 years Female with . Fever . Comparison: 07/05/2004 FINDINGS: MEDIASTINUM: The cardiac silhouette is not enlarged. LUNGS: No infiltrates, effusions or pneumothorax. OTHER: No free air under the diaphragm. Degenerative changes of the spine. IMPRESSION: No acute cardiopulmonary pathology. Review of Systems Review of Systems: Fever, neck pain, postop day 3 [facility] Past Medical History Medical History (Updated 10/27/24 @ 02:16 by Silvio Bartlett MD) History of smoking Hyperlipidemia Lumbago Epilepsy Cervical myelopathy Cervical kyphosis Stroke Seizure Surgical History Surgical History (Updated 10/24/24 @ 15:05 by Concetta Woods MD) History of appendectomy History of hysterectomy Family History Family History Mother Hypertension Sibling History of cancer Social History Social History (Updated 08/14/24 @ 15:08 by Char Hamilton CMA) Smoking packs per day: 1 Smoking cigarettes per day: 20.0 Years smoked: 1 Smoking pack-years: 1.00 Smoking status: Never smoker Tobacco type: cigarettes Smoking end date: 10/16/82 Additional smoking assessment comments: Denies Alcohol intake: never Alcohol use details: 1 per 6 mos Substance use: never Substance use type: does not use Do You Feel Safe in your Home?: No Lack of Transportation: No Lack of Food: Never True Current Housing: I Have Housing Concerned About Future Housing: No Difficulty Paying Gas/Electric Bills: No Difficulty Paying for Meds: No Currently Unemployed: No Education: Master's Degree or Higher Difficulty w/ Childcare or Family Care: No Living arrangements: alone Spiritual care concerns: No Meds Home Medications and Allergies Home Medications ?Medication ?Instructions ?Recorded ?Confirmed ?Type aspirin 81 mg tablet,delayed 81 mg PO DAILY 07/11/24 10/02/24 History release (Adult Low Dose Aspirin) furosemide 20 mg tablet 20 mg PO QAM 07/11/24 10/02/24 History gabapentin 100 mg capsule 100 mg PO TID 07/11/24 10/02/24 History levetiracetam 1,000 mg tablet 1,000 mg PO Q12H 07/11/24 10/02/24 History phenytoin sodium extended 100 mg 100 mg PO TID 07/11/24 10/02/24 History capsule potassium chloride 10 mEq 10 meq PO DAILY 07/11/24 10/02/24 History tablet,extended release rosuvastatin 20 mg tablet 20 mg PO DAILY 07/11/24 10/02/24 History tramadol 50 mg tablet 50 mg PO Q6H PRN pain 07/11/24 10/02/24 History trazodone 50 mg tablet 50 mg PO QHS PRN sleep 07/11/24 10/02/24 History tizanidine 4 mg capsule 4 mg PO TID PRN muscle spasticity 08/28/24 10/02/24 Rx #30 caps cyclobenzaprine 10 mg tablet 10 mg PO TID PRN Muscle Spasms 10 10/24/24 Rx days #30 tabs oxycodone 5 mg tablet 5 mg PO Q6H PRN Pain Rated 4-6 7 10/24/24 Rx days #28 tabs sennosides 8.6 mg-docusate sodium 1 tab PO BID Constipation 7 days 10/24/24 Rx 50 mg tablet (Senokot-S) #14 tabs Allergies Allergy/AdvReac Type Severity Reaction Status Date / Time No Known Allergies Allergy Unknown Verified 10/23/24 09:25 Vital Signs Vital Signs - 24 hr 10/26/24 04:34 10/26/24 14:00 10/26/24 18:01 Temperature 98.2 F 99.4 F 101.3 F H Pulse Rate 108 H 116 H Respiratory Rate 20 16 Blood Pressure 101/67 111/63 Pulse Oximetry 97 97 Oxygen Delivery 10/26/24 20:30 10/26/24 22:30 10/26/24 23:45 Temperature 98.0 F 98.6 F Pulse Rate 116 H 78 97 Respiratory Rate 16 16 18 Blood Pressure 127/83 109/74 Pulse Oximetry 97 98 99 Oxygen Delivery Room Air Exam Narrative: Patient is laying in bed Const: General: comfortable, no acute distress, well developed, alert, awake and average body habitus Nutritional Appearance: average body habitus Orientation/consciousness: patient oriented x3 Other: Neck collar on HENMT: Head: normal to inspection, normocephalic and atraumatic Ears: hearing grossly normal bilaterally Face/Nose/Sinus: normal facial exam Face and sinus: normal facial exam Eyes: General: appearance normal, both eyes and all related structures Pupils: Equal, round and reactive pupils present EOM: EOMs intact bilaterally Neck: Neck: full ROM, no lymphadenopathy and no JVD Thyroid: thyroid normal Lymphatic: no lymphadenopathy noted Resp: Effort & Inspection: normal respiratory effort and able to speak in complete sentences Auscultation: clear to auscultation bilaterally Cardio: Jugular venous distension: no JVD Rate: regular rate Rhythm: regular rhythm Heart sounds: S1 normal heart sound present and S2 normal heart sound present GI: GI Palp: Yes Soft to palpation and Yes No hepatosplenomegaly present : General: Yes deferred Skin: Rashes: no rashes Wounds: no wounds Neuro: General: patient oriented x3 and CN's II-XI intact bilaterally Cranial nerves: Yes CN's II-XII intact bilaterally and Yes Equal, round and reactive pupils present Cognition (Neuro): normal cognition Speech: normal speech Gait exam (Neuro): Unable to assess gait Extrem: General: normal to inspection, full ROM, no joint enlargement and no pedal edema Results Labs 10/26/24 18:59 10/26/24 18:59 Labs: Short CBC 10/26/24 Range/Units 18:59 WBC 7.8 (4.5-10.0) K/mm3 Hgb 12.9 (12.0-15.0) g/dL Hct 39.7 (37.0-47.0) % Plt Count 170 (150-375) k/mm3 BMP 10/26/24 18:59 Sodium 133 L Potassium 3.9 Chloride 98 Carbon Dioxide 30 BUN 11 Creatinine 0.72 Glucose 121 H Calcium 9.1 Liver Function 10/26/24 Range/Units 18:59 Total Bilirubin 0.5 (0.2-1.3) mg/dL AST 48 H (14-36) U/L ALT 32 (6-35) U/L Alkaline Phosphatase 111 (38-126) U/L Albumin 4.0 (3.5-5.1) g/dL Urine 10/26/24 Range/Units 20:40 Urine Color Yellow (Yellow) Urine Appearance Clear (Clear) Urine pH 6.0 (5.0-9.0) Ur Specific [place] 1.018 (1.001-1.035) Urine Protein Negative (Negative) mg/dL Urine Glucose (UA) Negative (Negative) mg/dL Hospitalist MIPS Advance Care Plan I have confirmed that the patient's Advanced Care Plan is present, code status is documented, or surrogate decision maker is listed in patient medical record.: Yes Medication Reconciliation I have utilized all available resources to obtain, update and review the patients current medications (includes all prescriptions, OTC, herbals, cannabis, and nutritional supplements).: Yes
[2024-10-27] MEDS: ACETAMINOPHEN 500 MG TABLET 1000 MG PO ×4 (03:11→21:09)
[2024-10-27] MEDS: oxyCODONE HCL (*CRX) 5 MG TAB IR 10 MG PO ×5 (03:11→22:22)
[2024-10-27] MEDS: oxyCODONE HCL (*CRX) 5 MG TAB IR PO (05:37)
[2024-10-27 07:04] VITALS: BP 123/77; PULSE 99; RESP 16; TEMP 37.1; O2SAT 98
[2024-10-27] MEDS: CYCLOBENZAPRINE HCL 10 MG TABLET PO ×3 (07:46→22:23)
--- NOTE | 2024-10-27 07:48 | P.PNIM_ITS ---
Progress Note: A&P Assessment and Plan (1) Cervical kyphosis: Code(s): M40.202 - Unspecified kyphosis, cervical region Status: Acute Assessment and Plan: - s/p C3, C4, C5, and C6 lateral mass instrumentation, C3-4, C4-5, and C5-6 arthrodesis with autograft and allograft, and C3, C4, and C5 laminectomies on 10/[address] Woods. - PT/OT per neurosurgery - Analgesics per neurosurgery - DVT ppx: lovenox (2) Fever: Code(s): R50.9 - Fever, unspecified Status: Acute Assessment and Plan: Patient developed a post operative fever on 10/26 of 101.3. Remains afebrile. - CBC without leukocytosis - Blood cultures obtained on 10/26: pending - UA obtained on 10/26: Clear appearance with negative nitrates, 2+ leukocytes, 6-10 RBC, 6-10 WBC, no bacteria seen. - Urine culture pending - Chest XR: No acute cardiopulmonary pathology. (3) Abnormal urinalysis: Code(s): R82.90 - Unspecified abnormal findings in urine Status: Acute Assessment and Plan: She denies any urinary symptoms including dysuria, burning sensation, hematuria, urgency/frequency. - UA: Clear appearance with negative nitrates, 2+ leukocytes, 6-10 RBC, 6-10 WBC, no bacteria seen. - UC obtained on 10/26: pending - no previous micro to be reviewed - started on rocephin on 10/26, discontinued will resume antibiotics per culture (4) Seizure: Code(s): R56.9 - Unspecified convulsions Status: Acute Assessment and Plan: Chronic, continue home medications - keppra 1000 mg BID - monitor Time Spent With Patient Time with patient: 25 - 35 minutes Subjective Date/time seen: 10/27/24 07:48 Interval history: 59-year-old female with past medical history of a stroke in 2006, seizures, and HLD who was referred to neurosurgery for stenosis of her cervical spine s/p C3, C4, C5, and C6 lateral mass instrumentation, C3-4, C4-5, and C5-6 arthrodesis with autograft and allograft, and C3, C4, and C5 laminectomies on 10/[address] Woods. Patient is pleasant lying comfortably in bed. She endorses neck pain but denies tingling/numbness to the extremities. She continues to be afebrile without leukocytosis. She denies any urinary symptoms including dysuria, burning sensation, hematuria, urgency/frequency. She also denies chest pain, shortness of breath, palpitations, nausea/vomiting and abdominal pain. Review of Systems Review of Systems: All systems reviewed & are unremarkable except as noted in HPI and below Exam Narrative: AF HR 99 RR 16 SpO2 98 BP 123/77 General: female in no acute respiratory distress who is nontoxic appearing, lying semi recumbent in bed. HEENT: Normocephalic. Atraumatic. Extraocular movement intact. Sclera clear and anicteric. Surgical incision does not appear infectious, no redness swelling or discharge noted. Chest: Lungs are clear to auscultation bilaterally. No wheezes or crackles. CV: Heart was regular rate and rhythm. S1-S2. No murmurs, gallops, or rubs. Abd: Abdomen was soft. Nontender. Nondistended. Positive bowel sounds. No organomegaly or masses. Ext: No clubbing, cyanosis, or edema. 2+ DP pulses bilaterally. Neuro: Patient is alert. Speech is clear. Objective Data Vital Signs Vital Signs: Vital Signs - 24 hr 10/26/24 14:00 10/26/24 18:01 10/26/24 20:30 Temperature 99.4 F 101.3 F H Pulse Rate 116 H 116 H Respiratory Rate 16 16 Blood Pressure 111/63 Pulse Oximetry 97 97 Oxygen Delivery Room Air 10/26/24 22:30 10/26/24 23:45 10/27/24 07:04 Temperature 98.0 F 98.6 F 98.7 F Pulse Rate 78 97 99 Respiratory Rate 16 18 16 Blood Pressure 127/83 109/74 123/77 Pulse Oximetry 98 99 98 Oxygen Delivery Intake/Output Intake/Output: Intake & Output 10/24/24 10/25/24 10/26/24 10/27/24 23:59 23:59 23:59 23:59 Intake Total 1261.7 480 480 Output Total 1645 Balance -383.3 480 480 Meds/Results Medications: Active Medications Generic Name Dose Route Start Last Admin Trade Name Freq PRN Reason Stop Dose Admin Acetaminophen 1,000 mg 10/23/24 16:00 10/27/24 03:11 Acetaminophen 500 Mg Tablet PO 1,000 mg Q6H YOBANI Administration Al Hydrox/Mg Hydrox/Simethicone 20 ml 10/23/24 12:50 Mag Hydrox/Al Hydrox/Simeth 30 Ml Udc PO Q4H PRN Indigestion/Heartburn Bisacodyl 10 mg 10/23/24 12:50 Bisacodyl 10 Mg Suppository RECTAL DAILY PRN Constipation Cyclobenzaprine HCl 10 mg 10/23/24 12:50 10/27/24 07:46 Cyclobenzaprine Hcl 10 Mg Tablet PO 10 mg TID PRN Administration Muscle Spasms Docusate Sodium 100 mg 10/23/24 21:00 10/26/24 20:35 Docusate Sodium 100 Mg Capsule PO 100 mg Q12HR YOBANI Administration Enoxaparin Sodium 30 mg 10/25/24 09:00 10/26/24 09:07 Enoxaparin 30 Mg/0.3 Ml Syringe SUB-Q 30 mg DAILY YOBANI Administration Furosemide 20 mg 10/24/24 09:00 10/26/24 09:07 Furosemide 20 Mg Tablet PO 20 mg QAM YOBANI Administration Gabapentin 100 mg 10/23/24 17:00 10/26/24 16:46 Gabapentin 100 Mg Capsule PO 100 mg TID YOBANI Administration Sodium Chloride 1,000 mls @ 100 mls/hr 10/23/24 12:50 10/26/24 10:08 Normal Saline Iv IV CONT Not Given .Q10H YOBANI Ceftriaxone Sodium 1 gm in 50 mls @ 100 mls/hr 10/27/24 00:15 10/27/24 01:47 Rocephin 1 Gm/Ns 50 Ml IVPB Not Given DAILY@2100 [facility] Levetiracetam 1,000 mg 10/23/24 21:00 10/26/24 20:35 Levetiracetam 500 Mg Tablet PO 1,000 mg Q12HR YOBANI Administration Morphine Sulfate 2 mg 10/23/24 12:50 10/23/24 14:55 Morphine Sulfate (*Crx) 2 Mg/Ml Inj IV PUSH 2 mg Q2H PRN Administration Breakthrough Pain Ondansetron HCl 4 mg 10/23/24 12:50 Ondansetron Inj 4 Mg/2 Ml Vial IV PUSH Q8H PRN Nausea And Vomiting Oxycodone HCl 10 mg 10/23/24 12:50 10/27/24 03:11 Oxycodone Hcl (*Crx) 5 Mg Tab Ir PO 10 mg Q4H PRN Administration Pain Rated 7-10 Oxycodone HCl 5 mg 10/23/24 12:50 10/27/24 05:37 Oxycodone Hcl (*Crx) 5 Mg Tab Ir PO 5 mg Q4H PRN Administration Pain Rated 4-6 Phenytoin Sodium 100 mg 10/23/24 17:00 10/26/24 16:46 Phenytoin Sodium 100 Mg Extended Release Cap PO 100 mg TID YOBANI Administration Potassium Chloride 10 meq 10/24/24 09:00 10/26/24 09:07 Potassium Chloride 10 Meq Er Tablet PO 10 meq DAILY YOBANI Administration Rosuvastatin Calcium 20 mg 10/24/24 09:00 10/26/24 09:07 Rosuvastatin 20 Mg Tablet PO 20 mg DAILY YOBANI Administration Senna/Docusate Sodium 1 tab 10/23/24 12:50 Senna/Docusate Sodium Tablet PO HS PRN Constipation Trazodone HCl 50 mg 10/23/24 12:53 10/24/24 21:46 Trazodone Hcl 50 Mg Tablet PO 50 mg QHS PRN Administration sleep Radiology Results: ITS Impressions Chest X-Ray 10/26/24 21:46 IMPRESSION: No acute cardiopulmonary pathology. Labs Labs: Laboratory Results - last 24 hr 10/26/24 10/26/24 18:59 20:40 WBC 7.8 RBC 4.31 Hgb 12.9 Hct 39.7 MCV 92.1 MCH 29.9 MCHC 32.5 RDW 12.4 Plt Count 170 MPV 11.7 H Sodium 133 L Potassium 3.9 Chloride 98 Carbon Dioxide 30 Anion Gap 5 BUN 11 Creatinine 0.72 Estim Creat Clear Calc 68 Estimated GFR > 60 Glucose 121 H Lactic Acid 1.1 Calcium 9.1 Total Bilirubin 0.5 AST 48 H ALT 32 Alkaline Phosphatase 111 Total Protein 8.0 Albumin 4.0 Urine Color Yellow Urine Appearance Clear Urine pH 6.0 Ur Specific [place] 1.018 Urine Protein Negative Urine Glucose (UA) Negative Urine Ketones Negative Ur Blood (Man) Negative Urine Nitrate Negative Urine Bilirubin Negative Urine Urobilinogen 0.2 Ur Leukocyte Esterase 2+ H Add Ur Microanalysis Reviewed Urine RBC 6-10 H Urine WBC 6-10 H Ur Squamous Epith Cells None seen Urine Bacteria None seen Urine Casts 0-2 Quality VTE Prophylaxis VTE prophylaxis: pharmacologic ordered
[2024-10-27 08:00] VITALS: O2SAT 98
[2024-10-27] MEDS: DOCUSATE SODIUM 100 MG CAPSULE PO ×2 (08:42→21:09)
[2024-10-27] MEDS: PHENYTOIN SODIUM 100 MG EXTENDED RELEASE CAP PO ×3 (08:42→16:31)
[2024-10-27] MEDS: ENOXAPARIN 30 MG/0.3 ML SYRINGE SUB-Q (08:42)
[2024-10-27] MEDS: levETIRAcetam 500 MG TABLET 1000 MG PO ×2 (08:42→21:09)
[2024-10-27] MEDS: GABAPENTIN 100 MG CAPSULE PO ×3 (08:42→16:31)
[2024-10-27] MEDS: FUROSEMIDE 20 MG TABLET PO (08:42)
[2024-10-27] MEDS: POTASSIUM CHLORIDE 10 MEQ ER TABLET PO (08:42)
[2024-10-27] MEDS: ROSUVASTATIN 20 MG TABLET PO (08:43)
[2024-10-27 10:23] LABS: Basophils Percent Auto 0.3 % (0.2-1.2); Eosinophils Absolute Auto 0.2 K/mm3 (0-0.3); Eosinophils Percent Auto 2.5 % (0-4.4); Hematocrit 39.7 % (37.0-47.0); Hemoglobin 12.6 g/dL (12.0-15.0); Immature Granulocyte Absolute 0.02 K/mm3 (0.00-0.031); Immature Granulocyte Percent A 0.3 % (0-0.5); Lymphocytes Absolute Auto 1.01 K/mm3 (0.9-3.2); Lymphocytes Percent Auto 16.6 % (18.3-44.2); Mean Corpuscular HGB Conc 31.7 g/dl (32-36); Mean Corpuscular Volume 94.5 fl (80-100); Mean Platelet Volume 11.5 fl (7.4-10.4); Monocytes Absolute Auto 0.7 K/mm3 (0.1-0.6); Monocytes Percent Auto 10.7 % (2.6-8.5); Neutrophils Absolute Auto 4.2 K/mm3 (1.3-6.7); Neutrophils Percent Auto 69.6 % (45.5-73.1); Platelet Count Result 151 k/mm3 (150-375); Red Cell Distribution Width 12.4 % (11.5-14.5); White Blood Count 6.1 K/mm3 (4.5-10.0)
[2024-10-27 10:37] LABS: Alanine Aminotransferase 47 U/L (6-35); Albumin Level 3.9 g/dL (3.5-5.1); Alkaline Phosphatase 123 U/L (38-126); Anion Gap 1 mmol/L (4-12); Aspartate Amino Transferase 57 U/L (14-36); Bilirubin,Total 0.5 mg/dL (0.2-1.3); Blood Urea Nitrogen 10 mg/dL (7-17); Calcium 8.8 mg/dL (8.4-10.2); Carbon Dioxide 32 mmol/L (22-30); Chloride 101 mmol/L (98-107); Estimated CRCL calculation 90 ml/min; Estimated Glomerular Filt Rate > 60; Glucose 116 mg/dL (65-110); Potassium 3.6 mmol/L (3.4-5.0); Sodium 134 mmol/L (137-145)
--- NOTE | 2024-10-27 11:33 | WPDNEUROSGPN ---
Progress Note: A&P Assessment and Plan (1) Cervical myelopathy: Code(s): G95.9 - Disease of spinal cord, unspecified Status: Acute Plan NEurologically stable POD#4 from posterior cervical decompression and fusion for myelopathy Working with PT/OT recommendation for SNF Patient has requested facility in [place]; CM working on placment Encouraged incentive spirometry as in absence of clear source for fever, atelectasis would be primary concern PAtient is stable for transfer to SNF when bed available Time Spent With Patient Time with patient: 15 - 25 minutes Subjective Date/time seen: 10/27/24 11:33 Interval history: patient doing well overall febrile overnight. laboratory studies unremarkable to date appreciate hospitalist involvement patient remains with neck pain; improved RUE function Exam Narrative: Awake, alert oriented x 3 Speech CF ROM EOMI Face= NGUYỄN with residual L HP from old stroke Incision CDI Objective Data Vital Signs Vital Signs: Vital Signs - 24 hr 10/26/24 14:00 10/26/24 18:01 10/26/24 20:30 Temperature 37.4 C 38.5 C H Pulse Rate 116 H 116 H Respiratory Rate 16 16 Blood Pressure 111/63 Pulse Oximetry 97 97 Oxygen Delivery Room Air 10/26/24 22:30 10/26/24 23:45 10/27/24 07:04 Temperature 36.7 C 37.0 C 37.1 C Pulse Rate 78 97 99 Respiratory Rate 16 18 16 Blood Pressure 127/83 109/74 123/77 Pulse Oximetry 98 99 98 Oxygen Delivery 10/27/24 08:00 Temperature Pulse Rate Respiratory Rate Blood Pressure Pulse Oximetry 98 Oxygen Delivery Room Air Intake/Output Intake/Output: Intake & Output 10/24/24 10/25/24 10/26/24 10/27/24 23:59 23:59 23:59 23:59 Intake Total 1261.7 480 480 0 Output Total 1645 Balance -383.3 480 480 0 Meds/Results Medications: Active Medications Generic Name Dose Route Start Last Admin Trade Name Freq PRN Reason Stop Dose Admin Acetaminophen 1,000 mg 10/23/24 16:00 10/27/24 10:00 Acetaminophen 500 Mg Tablet PO 1,000 mg Q6H YOBANI Administration Al Hydrox/Mg Hydrox/Simethicone 20 ml 10/23/24 12:50 Mag Hydrox/Al Hydrox/Simeth 30 Ml Udc PO Q4H PRN Indigestion/Heartburn Bisacodyl 10 mg 10/23/24 12:50 Bisacodyl 10 Mg Suppository RECTAL DAILY PRN Constipation Cyclobenzaprine HCl 10 mg 10/23/24 12:50 10/27/24 07:46 Cyclobenzaprine Hcl 10 Mg Tablet PO 10 mg TID PRN Administration Muscle Spasms Docusate Sodium 100 mg 10/23/24 21:00 10/27/24 08:42 Docusate Sodium 100 Mg Capsule PO 100 mg Q12HR YOBANI Administration Enoxaparin Sodium 30 mg 10/25/24 09:00 10/27/24 08:42 Enoxaparin 30 Mg/0.3 Ml Syringe SUB-Q 30 mg DAILY COUNT INCLUDES THE [facility] Administration Furosemide 20 mg 10/24/24 09:00 10/27/24 08:42 Furosemide 20 Mg Tablet PO 20 mg QAM YOBANI Administration Gabapentin 100 mg 10/23/24 17:00 10/27/24 08:42 Gabapentin 100 Mg Capsule PO 100 mg TID COUNT INCLUDES THE [facility] Administration Ceftriaxone Sodium 1 gm in 50 mls @ 100 mls/hr 10/27/24 00:15 10/27/24 01:47 Rocephin 1 Gm/Ns 50 Ml IVPB Not Given DAILY@2100 COUNT INCLUDES [facility] Levetiracetam 1,000 mg 10/23/24 21:00 10/27/24 08:42 Levetiracetam 500 Mg Tablet PO 1,000 mg Q12HR COUNT INCLUDES THE [facility] Administration Morphine Sulfate 2 mg 10/23/24 12:50 10/23/24 14:55 Morphine Sulfate (*Crx) 2 Mg/Ml Inj IV PUSH 2 mg Q2H PRN Administration Breakthrough Pain Ondansetron HCl 4 mg 10/23/24 12:50 Ondansetron Inj 4 Mg/2 Ml Vial IV PUSH Q8H PRN Nausea And Vomiting Oxycodone HCl 10 mg 10/23/24 12:50 10/27/24 08:43 Oxycodone Hcl (*Crx) 5 Mg Tab Ir PO 10 mg Q4H PRN Administration Pain Rated 7-10 Oxycodone HCl 5 mg 10/23/24 12:50 10/27/24 05:37 Oxycodone Hcl (*Crx) 5 Mg Tab Ir PO 5 mg Q4H PRN Administration Pain Rated 4-6 Phenytoin Sodium 100 mg 10/23/24 17:00 10/27/24 08:42 Phenytoin Sodium 100 Mg Extended Release Cap PO 100 mg TID YOBANI Administration Potassium Chloride 10 meq 10/24/24 09:00 10/27/24 08:42 Potassium Chloride 10 Meq Er Tablet PO 10 meq DAILY YOBANI Administration Rosuvastatin Calcium 20 mg 10/24/24 09:00 10/27/24 08:43 Rosuvastatin 20 Mg Tablet PO 20 mg DAILY YOBANI Administration Senna/Docusate Sodium 1 tab 10/23/24 12:50 Senna/Docusate Sodium Tablet PO HS PRN Constipation Trazodone HCl 50 mg 10/23/24 12:53 10/24/24 21:46 Trazodone Hcl 50 Mg Tablet PO 50 mg QHS PRN Administration sleep Radiology Results: ITS Impressions Chest X-Ray 10/26/24 21:46 IMPRESSION: No acute cardiopulmonary pathology. Labs Labs: Laboratory Results - last 24 hr 10/26/24 10/26/24 10/27/24 18:59 20:40 10:18 WBC 7.8 6.1 RBC 4.31 4.20 Hgb 12.9 12.6 Hct 39.7 39.7 MCV 92.1 94.5 MCH 29.9 30.0 MCHC 32.5 31.7 L RDW 12.4 12.4 Plt Count 170 151 MPV 11.7 H 11.5 H Immature Gran % (Auto) 0.3 Neut % (Auto) 69.6 Lymph % (Auto) 16.6 L [place] % (Auto) 10.7 H Eos % (Auto) 2.5 Baso % (Auto) 0.3 Lymph # (Auto) 1.01 [place] # (Auto) 0.7 H Eos # (Auto) 0.2 Baso # (Auto) 0.0 Abs Immat Gran (auto) 0.02 Absolute Neuts (auto) 4.2 Absolute Nucleated RBC 0.000 Nucleated RBC % 0.0 Sodium 133 L 134 L Potassium 3.9 3.6 Chloride 98 101 Carbon Dioxide 30 32 H Anion Gap 5 1 L BUN 11 10 Creatinine 0.72 0.53 L Estim Creat Clear Calc 68 90 Estimated GFR > 60 > 60 Glucose 121 H 116 H Lactic Acid 1.1 Calcium 9.1 8.8 Total Bilirubin 0.5 0.5 AST 48 H 57 H ALT 32 47 H Alkaline Phosphatase 111 123 Total Protein 8.0 7.0 Albumin 4.0 3.9 Urine Color Yellow Urine Appearance Clear Urine pH 6.0 Ur Specific [place] 1.018 Urine Protein Negative Urine Glucose (UA) Negative Urine Ketones Negative Ur Blood (Man) Negative Urine Nitrate Negative Urine Bilirubin Negative Urine Urobilinogen 0.2 Ur Leukocyte Esterase 2+ H Add Ur Microanalysis Reviewed Urine RBC 6-10 H Urine WBC 6-10 H Ur Squamous Epith Cells None seen Urine Bacteria None seen Urine Casts 0-2
[2024-10-27 15:09] VITALS: BP 116/79; PULSE 114; RESP 16; TEMP 37.3; O2SAT 95
[2024-10-27 20:40] VITALS: BP 108/74; PULSE 103; RESP 16; TEMP 36.3; O2SAT 99
[2024-10-27] MEDS: traZODone HCL 50 MG TABLET PO (22:26)
[2024-10-28] MEDS: ACETAMINOPHEN 500 MG TABLET 1000 MG PO ×2 (04:01→09:26)
[2024-10-28] MEDS: oxyCODONE HCL (*CRX) 5 MG TAB IR 10 MG PO ×3 (04:02→13:52)
[2024-10-28 06:00] LABS: Basophils Percent Auto 0.3 % (0.2-1.2); Eosinophils Absolute Auto 0.3 K/mm3 (0-0.3); Eosinophils Percent Auto 4.3 % (0-4.4); Hematocrit 33.9 % (37.0-47.0); Hemoglobin 10.8 g/dL (12.0-15.0); Immature Granulocyte Absolute 0.01 K/mm3 (0.00-0.031); Immature Granulocyte Percent A 0.2 % (0-0.5); Lymphocytes Absolute Auto 1.22 K/mm3 (0.9-3.2); Lymphocytes Percent Auto 21.1 % (18.3-44.2); Mean Corpuscular HGB Conc 31.9 g/dl (32-36); Mean Corpuscular Volume 94.2 fl (80-100); Mean Platelet Volume 11.6 fl (7.4-10.4); Monocytes Absolute Auto 0.8 K/mm3 (0.1-0.6); Monocytes Percent Auto 13.8 % (2.6-8.5); Neutrophils Absolute Auto 3.5 K/mm3 (1.3-6.7); Neutrophils Percent Auto 60.3 % (45.5-73.1); Platelet Count Result 159 k/mm3 (150-375); Red Cell Distribution Width 12.2 % (11.5-14.5); White Blood Count 5.8 K/mm3 (4.5-10.0)
[2024-10-28 06:14] LABS: Alanine Aminotransferase 48 U/L (6-35); Albumin Level 3.3 g/dL (3.5-5.1); Alkaline Phosphatase 114 U/L (38-126); Anion Gap 3 mmol/L (4-12); Aspartate Amino Transferase 48 U/L (14-36); Bilirubin,Total 0.4 mg/dL (0.2-1.3); Blood Urea Nitrogen 11 mg/dL (7-17); Calcium 8.3 mg/dL (8.4-10.2); Carbon Dioxide 32 mmol/L (22-30); Chloride 99 mmol/L (98-107); Estimated CRCL calculation 93 ml/min; Estimated Glomerular Filt Rate > 60; Glucose 111 mg/dL (65-110); Potassium 3.8 mmol/L (3.4-5.0); Sodium 134 mmol/L (137-145)
[2024-10-28 06:49] VITALS: BP 94/75; PULSE 96; RESP 18; TEMP 36.4; O2SAT 97
--- NOTE | 2024-10-28 07:27 | PM.IMPN ---
Progress Note: A&P Assessment and Plan (1) Cervical kyphosis: Code(s): M40.202 - Unspecified kyphosis, cervical region Status: Acute Assessment and Plan: - s/p C3, C4, C5, and C6 lateral mass instrumentation, C3-4, C4-5, and C5-6 arthrodesis with autograft and allograft, and C3, C4, and C5 laminectomies on 10/[address] Woods. - PT/OT per neurosurgery - Analgesics per neurosurgery - DVT ppx: lovenox (2) Fever: Code(s): R50.9 - Fever, unspecified Status: Acute Assessment and Plan: Patient developed a post operative fever on 10/26 of 101.3. - CBC without leukocytosis - Blood cultures obtained on 10/26: pending - UA obtained on 10/26: Clear appearance with negative nitrates, 2+ leukocytes, 6-10 RBC, 6-10 WBC, no bacteria seen. Patient denies any urinary symptoms - Urine culture pending - Chest XR: No acute cardiopulmonary pathology. - IS ordered for atelectasis as possible cause of fever on 10/26 Remains afebrile. (3) Abnormal urinalysis: Code(s): R82.90 - Unspecified abnormal findings in urine Status: Acute Assessment and Plan: She denies any urinary symptoms including dysuria, burning sensation, hematuria, urgency/frequency. - UA: Clear appearance with negative nitrates, 2+ leukocytes, 6-10 RBC, 6-10 WBC, no bacteria seen. - UC obtained on 10/26: pending - no previous micro to be reviewed - started on rocephin on 10/26, discontinued will resume antibiotics per culture (4) Seizure: Code(s): R56.9 - Unspecified convulsions Status: Acute Assessment and Plan: Chronic, continue home medications - keppra 1000 mg BID - monitor Time Spent With Patient Time with patient: 25 - 35 minutes Subjective Date/time seen: 10/28/24 07:27 Interval history: 59-year-old female with past medical history of a stroke in 2005, seizures, and HLD who was referred to neurosurgery for stenosis of her cervical spine s/p C3, C4, C5, and C6 lateral mass instrumentation, C3-4, C4-5, and C5-6 arthrodesis with autograft and allograft, and C3, C4, and C5 laminectomies on 10/[address] Woods. Patient is pleasant sitting up in her chair. She remains afebrile at this time. She has no complaints denying chest pain, shortness of breath, palpitations, tingling/numbness, dizziness/lightheadedness, and abdominal pain. Review of Systems Review of Systems: All systems reviewed & are unremarkable except as noted in HPI and below Exam Narrative: AF HR 96 RR 18 Spo2 97 BP 94/75 General: female in no acute respiratory distress who is nontoxic appearing, lying semi recumbent in bed. HEENT: Normocephalic. Atraumatic. Extraocular movement intact. Sclera clear and anicteric. Surgical incision does not appear infectious, no redness swelling or discharge noted. Chest: Lungs are clear to auscultation bilaterally. No wheezes or crackles. CV: Heart was regular rate and rhythm. S1-S2. No murmurs, gallops, or rubs. Abd: Abdomen was soft. Nontender. Nondistended. Positive bowel sounds. No organomegaly or masses. Ext: No clubbing, cyanosis, or edema. 2+ DP pulses bilaterally. Neuro: Patient is alert. Speech is clear. Objective Data Vital Signs Vital Signs: Vital Signs - 24 hr 10/27/24 08:00 10/27/24 11:30 10/27/24 15:09 Temperature 99.1 F Pulse Rate 114 H Respiratory Rate 16 Blood Pressure 116/79 Pulse Oximetry 98 95 Oxygen Delivery Room Air Room Air 10/27/24 20:40 10/28/24 06:49 Temperature 97.4 F L 97.5 F L Pulse Rate 103 H 96 Respiratory Rate 16 18 Blood Pressure 108/74 94/75 L Pulse Oximetry 99 97 Oxygen Delivery Intake/Output Intake/Output: Intake & Output 10/25/24 10/26/24 10/27/24 10/28/24 23:59 23:59 23:59 23:59 Intake Total 480 480 920 400 Output Total 600 350 Balance 480 480 320 50 Meds/Results Medications: Active Medications Generic Name Dose Route Start Last Admin Trade Name Freq PRN Reason Stop Dose Admin Acetaminophen 1,000 mg 10/23/24 16:00 10/28/24 04:01 Acetaminophen 500 Mg Tablet PO 1,000 mg Q6H YOBANI Administration Al Hydrox/Mg Hydrox/Simethicone 20 ml 10/23/24 12:50 Mag Hydrox/Al Hydrox/Simeth 30 Ml Udc PO Q4H PRN Indigestion/Heartburn Bisacodyl 10 mg 10/23/24 12:50 Bisacodyl 10 Mg Suppository RECTAL DAILY PRN Constipation Cyclobenzaprine HCl 10 mg 10/23/24 12:50 10/27/24 22:23 Cyclobenzaprine Hcl 10 Mg Tablet PO 10 mg TID PRN Administration Muscle Spasms Docusate Sodium 100 mg 10/23/24 21:00 10/27/24 21:09 Docusate Sodium 100 Mg Capsule PO 100 mg Q12HR YOBANI Administration Enoxaparin Sodium 30 mg 10/25/24 09:00 10/27/24 08:42 Enoxaparin 30 Mg/0.3 Ml Syringe SUB-Q 30 mg DAILY YOBANI Administration Furosemide 20 mg 10/24/24 09:00 10/27/24 08:42 Furosemide 20 Mg Tablet PO 20 mg QAM YOBANI Administration Gabapentin 100 mg 10/23/24 17:00 10/27/24 16:31 Gabapentin 100 Mg Capsule PO 100 mg TID YOBANI Administration Levetiracetam 1,000 mg 10/23/24 21:00 10/27/24 21:09 Levetiracetam 500 Mg Tablet PO 1,000 mg Q12HR [facility] Administration Morphine Sulfate 2 mg 10/23/24 12:50 10/23/24 14:55 Morphine Sulfate (*Crx) 2 Mg/Ml Inj IV PUSH 2 mg Q2H PRN Administration Breakthrough Pain Ondansetron HCl 4 mg 10/23/24 12:50 Ondansetron Inj 4 Mg/2 Ml Vial IV PUSH Q8H PRN Nausea And Vomiting Oxycodone HCl 10 mg 10/23/24 12:50 10/28/24 04:02 Oxycodone Hcl (*Crx) 5 Mg Tab Ir PO 10 mg Q4H PRN Administration Pain Rated 7-10 Oxycodone HCl 5 mg 10/23/24 12:50 10/27/24 05:37 Oxycodone Hcl (*Crx) 5 Mg Tab Ir PO 5 mg Q4H PRN Administration Pain Rated 4-6 Phenytoin Sodium 100 mg 10/23/24 17:00 10/27/24 16:31 Phenytoin Sodium 100 Mg Extended Release Cap PO 100 mg TID YOBANI Administration Potassium Chloride 10 meq 10/24/24 09:00 10/27/24 08:42 Potassium Chloride 10 Meq Er Tablet PO 10 meq DAILY YOBANI Administration Rosuvastatin Calcium 20 mg 10/24/24 09:00 10/27/24 08:43 Rosuvastatin 20 Mg Tablet PO 20 mg DAILY YOBANI Administration Senna/Docusate Sodium 1 tab 10/23/24 12:50 Senna/Docusate Sodium Tablet PO HS PRN Constipation Trazodone HCl 50 mg 10/23/24 12:53 10/27/24 22:26 Trazodone Hcl 50 Mg Tablet PO 50 mg QHS PRN Administration sleep Radiology Results: ITS Impressions Chest X-Ray 10/26/24 21:46 IMPRESSION: No acute cardiopulmonary pathology. Labs Labs: Laboratory Results - last 24 hr 10/27/24 10/28/24 10:18 05:42 WBC 6.1 5.8 RBC 4.20 3.60 L Hgb 12.6 10.8 L Hct 39.7 33.9 L MCV 94.5 94.2 MCH 30.0 30.0 MCHC 31.7 L 31.9 L RDW 12.4 12.2 Plt Count 151 159 MPV 11.5 H 11.6 H Immature Gran % (Auto) 0.3 0.2 Neut % (Auto) 69.6 60.3 Lymph % (Auto) 16.6 L 21.1 [place] % (Auto) 10.7 H 13.8 H Eos % (Auto) 2.5 4.3 Baso % (Auto) 0.3 0.3 Lymph # (Auto) 1.01 1.22 [place] # (Auto) 0.7 H 0.8 H Eos # (Auto) 0.2 0.3 Baso # (Auto) 0.0 0.0 Abs Immat Gran (auto) 0.02 0.01 Absolute Neuts (auto) 4.2 3.5 Absolute Nucleated RBC 0.000 0.000 Nucleated RBC % 0.0 0.0 Sodium 134 L 134 L Potassium 3.6 3.8 Chloride 101 99 Carbon Dioxide 32 H 32 H Anion Gap 1 L 3 L BUN 10 11 Creatinine 0.53 L 0.51 L Estim Creat Clear Calc 90 93 Estimated GFR > 60 > 60 Glucose 116 H 111 H Calcium 8.8 8.3 L Total Bilirubin 0.5 0.4 AST 57 H 48 H ALT 47 H 48 H Alkaline Phosphatase 123 114 Total Protein 7.0 6.0 L Albumin 3.9 3.3 L Quality VTE Prophylaxis VTE prophylaxis: pharmacologic ordered
[2024-10-28 08:00] VITALS: O2SAT 97
[2024-10-28] MEDS: CYCLOBENZAPRINE HCL 10 MG TABLET PO (09:25)
[2024-10-28] MEDS: FUROSEMIDE 20 MG TABLET PO (09:26)
[2024-10-28] MEDS: GABAPENTIN 100 MG CAPSULE PO ×2 (09:26→13:06)
[2024-10-28] MEDS: DOCUSATE SODIUM 100 MG CAPSULE PO (09:26)
[2024-10-28] MEDS: PHENYTOIN SODIUM 100 MG EXTENDED RELEASE CAP PO ×2 (09:26→13:07)
[2024-10-28] MEDS: ROSUVASTATIN 20 MG TABLET PO (09:26)
[2024-10-28] MEDS: POTASSIUM CHLORIDE 10 MEQ ER TABLET PO (09:26)
[2024-10-28] MEDS: levETIRAcetam 500 MG TABLET 1000 MG PO (09:26)
--- NOTE | 2024-10-28 10:39 | PCOTNOTE ---
The patient treatment was not able to be completed. Patient working with PT. Will plan to continue treatment per plan of care.
--- NOTE | 2024-10-28 12:42 | P.PNNEUSUR_ITS ---
Progress Note: A&P Assessment and Plan (1) Cervical myelopathy: Code(s): G95.9 - Disease of spinal cord, unspecified Status: Acute Plan Neurologically stable POD#5 from posterior cervical decompression and fusion for myelopathy Working with PT/OT recommendation for SNF Patient [place] facility [place]; CM working on placement Encouraged incentive spirometry as in absence of clear source for fever, atelectasis would be primary concern Patient is stable for transfer to SNF when bed available Time Spent With Patient Time with patient: 15 - 25 minutes Subjective Date/time seen: 10/28/24 12:42 Interval history: 5 days status post PCDF C3-C6 on 11/02/[address] Woods. Patient reports doing well. Sitting in chair eating. Family at bedside. Denies any new numbness, tingling, or weakness. Endorses some pulling and sharp pain between the shoulder blades, but states that it is well controlled. Awaiting final placement/ discharge disposition. Has remained afebrile. Review of Systems Review of Systems: All systems reviewed & are unremarkable except as noted in HPI and below Exam Const: General: comfortable and no acute distress Resp: Effort & Inspection: normal respiratory effort Skin: Other: Well-approximated posterior neck incision. No erythema, warmth, drainage. No discrete fluid collection. Neuro: General: oriented to person, oriented to place and oriented to time Cranial nerves: Yes CN's II-XII intact bilaterally Cognition (Neuro): normal cognition Speech: normal speech Motor exam (neuro): Abnormal motor strength present left upper extremity other ( diffusely weak at baseline) Objective Data Vital Signs Vital Signs: Vital Signs - 24 hr 10/27/24 15:09 10/27/24 20:40 10/28/24 06:49 Temperature 99.1 F 97.4 F L 97.5 F L Pulse Rate 114 H 103 H 96 Respiratory Rate 16 16 18 Blood Pressure 116/79 108/74 94/75 L Pulse Oximetry 95 99 97 Oxygen Delivery 10/28/24 08:00 Temperature Pulse Rate Respiratory Rate Blood Pressure Pulse Oximetry 97 Oxygen Delivery Room Air Intake/Output Intake/Output: Intake & Output 10/25/24 10/26/24 10/27/24 10/28/24 23:59 23:59 23:59 23:59 Intake Total 480 480 920 640 Output Total 600 350 Balance 480 480 320 290 Meds/Results Medications: Active Medications Generic Name Dose Route Start Last Admin Trade Name Freq PRN Reason Stop Dose Admin Acetaminophen 1,000 mg 10/23/24 16:00 10/28/24 09:26 Acetaminophen 500 Mg Tablet PO 1,000 mg Q6H YOBANI Administration Al Hydrox/Mg Hydrox/Simethicone 20 ml 10/23/24 12:50 Mag Hydrox/Al Hydrox/Simeth 30 Ml Udc PO Q4H PRN Indigestion/Heartburn Bisacodyl 10 mg 10/23/24 12:50 Bisacodyl 10 Mg Suppository RECTAL DAILY PRN Constipation Cyclobenzaprine HCl 10 mg 10/23/24 12:50 10/28/24 09:25 Cyclobenzaprine Hcl 10 Mg Tablet PO 10 mg TID PRN Administration Muscle Spasms Docusate Sodium 100 mg 10/23/24 21:00 10/28/24 09:26 Docusate Sodium 100 Mg Capsule PO 100 mg Q12HR YOBANI Administration Enoxaparin Sodium 40 mg 10/28/24 09:00 10/28/24 11:09 Enoxaparin 40 Mg/0.4 Ml Syringe SUB-Q Not Given DAILY [facility] Furosemide 20 mg 10/24/24 09:00 10/28/24 09:26 Furosemide 20 Mg Tablet PO 20 mg QAM [facility] Administration Gabapentin 100 mg 10/23/24 17:00 10/28/24 09:26 Gabapentin 100 Mg Capsule PO 100 mg TID YOBANI Administration Levetiracetam 1,000 mg 10/23/24 21:00 10/28/24 09:26 Levetiracetam 500 Mg Tablet PO 1,000 mg Q12HR YOBANI Administration Morphine Sulfate 2 mg 10/23/24 12:50 10/23/24 14:55 Morphine Sulfate (*Crx) 2 Mg/Ml Inj IV PUSH 2 mg Q2H PRN Administration Breakthrough Pain Ondansetron HCl 4 mg 10/23/24 12:50 Ondansetron Inj 4 Mg/2 Ml Vial IV PUSH Q8H PRN Nausea And Vomiting Oxycodone HCl 10 mg 10/23/24 12:50 10/28/24 09:25 Oxycodone Hcl (*Crx) 5 Mg Tab Ir PO 10 mg Q4H PRN Administration Pain Rated 7-10 Oxycodone HCl 5 mg 10/23/24 12:50 10/27/24 05:37 Oxycodone Hcl (*Crx) 5 Mg Tab Ir PO 5 mg Q4H PRN Administration Pain Rated 4-6 Phenytoin Sodium 100 mg 10/23/24 17:00 10/28/24 09:26 Phenytoin Sodium 100 Mg Extended Release Cap PO 100 mg TID YOBANI Administration Potassium Chloride 10 meq 10/24/24 09:00 10/28/24 09:26 Potassium Chloride 10 Meq Er Tablet PO 10 meq DAILY YOBANI Administration Rosuvastatin Calcium 20 mg 10/24/24 09:00 10/28/24 09:26 Rosuvastatin 20 Mg Tablet PO 20 mg DAILY YOBANI Administration Senna/Docusate Sodium 1 tab 10/23/24 12:50 Senna/Docusate Sodium Tablet PO HS PRN Constipation Trazodone HCl 50 mg 10/23/24 12:53 10/27/24 22:26 Trazodone Hcl 50 Mg Tablet PO 50 mg QHS PRN Administration sleep Radiology Results: ITS Impressions Chest X-Ray 10/26/24 21:46 IMPRESSION: No acute cardiopulmonary pathology. Labs Labs: Laboratory Results - last 24 hr 10/28/24 05:42 WBC 5.8 RBC 3.60 L Hgb 10.8 L Hct 33.9 L MCV 94.2 MCH 30.0 MCHC 31.9 L RDW 12.2 Plt Count 159 MPV 11.6 H Immature Gran % (Auto) 0.2 Neut % (Auto) 60.3 Lymph % (Auto) 21.1 [place] % (Auto) 13.8 H Eos % (Auto) 4.3 Baso % (Auto) 0.3 Lymph # (Auto) 1.22 [place] # (Auto) 0.8 H Eos # (Auto) 0.3 Baso # (Auto) 0.0 Abs Immat Gran (auto) 0.01 Absolute Neuts (auto) 3.5 Absolute Nucleated RBC 0.000 Nucleated RBC % 0.0 Sodium 134 L Potassium 3.8 Chloride 99 Carbon Dioxide 32 H Anion Gap 3 L BUN 11 Creatinine 0.51 L Estim Creat Clear Calc 93 Estimated GFR > 60 Glucose 111 H Calcium 8.3 L Total Bilirubin 0.4 AST 48 H ALT 48 H Alkaline Phosphatase 114 Total Protein 6.0 L Albumin 3.3 L
[2024-10-28 16:00] VITALS: BP 130/78; PULSE 117; RESP 16; TEMP 36.9; O2SAT 98
--- OUTSIDE RECORDS SUMMARY | 2024-10-30 02:34 | XMS_ITS | Clinical Summary ---
Author Organization [facility] Address [address] [place] [address] Care Team Providers Care Java Security Engineer Name Role Phone Justin Bernal MD Primary Care Provider [phone] [facility],non-owned Affiliates and Associated Physician Practices is amultiple site organization consisting of ambulatory clinics and hospital sitesin [place], [place], [place] and [place]. This disclosure is being madepursuant to the Care Everywhere program and may not contain all information available regarding this patient. Last updated 18.[facility] Medications * Be aware that medications may not be up to date on this document. Alwaysverify current medications with the patient. Medication Sig Dispensed Refills Start Date End Date Status aspirin EC (Ecotrin) 81 MG tablet Take 1 (one) tablet by mouth once daily Active furosemide (Lasix) 20 MG tablet Take 1 (one) tablet by mouth once daily Active gabapentin (Neurontin) 100 MG capsule Take 1 (one) capsule by mouth 3 times daily Active levETIRAcetam (Keppra) 1000 MG tablet Take 1 (one) tablet by mouth 2 times daily Active potassium chloride ER (Klor-Con M) 10 MEQ tablet Take 1 (one) tablet by mouth once daily Active phenytoin ER (Dilantin) 100 MG capsule Take 1 (one) capsule by mouth once daily Active traZODone (Desyrel) 50 MG tablet Take 1 (one) tablet by mouth at bedtime Active acetaminophen CR (Tylenol Arthritis Pain) 650 MG tablet Take 1 (one) tablet by mouth every 8 hours as needed for Pain 04/21/2024 Active Vitamin D3, cholecalciferol, 50 MCG (2000 UT) tablet Take 1 (one) tablet by mouth once daily 04/10/2024 Active potassium chloride ER (Micro-K) 10 MEQ capsule Take 1 (one) capsule by mouth daily with breakfast 05/06/2024 Active rosuvastatin (Crestor) 20 MG tablet Take 1 (one) tablet by mouth at bedtime 03/29/2024 Active sulfamethoxazole-trim ethoprim (Bactrim DS; Septra DS) 800-160 MG tablet Take 1 (one) tablet by mouth 2 times daily 01/02/2024 Active traMADol (Ultram) 50 MG tablet Take 1 (one) tablet by mouth every 6 hours as needed for Pain 05/13/2024 Active Social History Tobacco Use Types Packs/Day Years Used Date Smoking Tobacco: Never Assessed Sex and Gender Information Value Date Recorded Sex Assigned at Not on file Gender Identity Not on file Sexual Orientation Not on file Plan of Treatment Upcoming Encounters Date Type Department Care Team (Late st Contact Info) Description 01/21/2025 11:00 AM CDT Office Visit [facility] - Neurology [address] [place] [address] Jayshree Amos, SHMUEL-CANE FLUME WATCHMAN [address] [place] [phone] Health Maintenance Due Date Last Done Comments COLOGUARD (AGES 45-75) - COL ON CA SCREENING 1965 COLON MONITORING 1965 COLONOSCOPY - COLON CA SCREENING 1965 CT COLONOGRAPHY - COLON CA SCREENING 1965 Colorectal Cancer Screening 1965 FIT - COLON CA SCREENING 1965 FLEX SIG - COLON CA SCREENING 1965 MAMMOGRAM 1965 PAP SMEAR 1965 HIV SCREENING 1980 HEPATITIS C SCREENING 06/07/1983 DTAP/TDAP/TD VACCINES (1 - Tdap) 1984 HEPATITIS B VACCINE (1 of 3 - 19+ 3-dose series) 1984 PNEUMOCOCCAL VACCINE 50+ (1 of 1 - PCV) 2015 ZOSTER VACCINE (1 of 2) 2015 COVID-19 VACCINE ( - 2023-2 5 season) 2024 INFLUENZA VACCINE (#1) 2024 DEPRESSION SCREENING 10/16/2024 MEDICARE AWV ? CALENDAR YEAR 2024 HIB VACCINE Aged Out No longer eligi ble based on patient's age to complete this topic HPV VACCINE Aged Out No longer eligi ble based on patient's age to complete this topic MENINGOCOCCAL (Group B) VACCINE Aged Out No longer eligible based on patient's age to complete this topic MENINGOCOCCAL VACCINE Aged Out No asad lisa eligible based on patient's age to complete this topic PNEUMOCOCCAL VACCINE Aged Out No long er eligible based on patient's age to complete this topic Care Teams Java Security Engineer Relationship Specialty Start Date End Date Justin Bernal MD [address] [place] [phone] PCP - General 04/03/18
--- OUTSIDE RECORDS SUMMARY | 2024-10-30 02:34 | XMS_ITS | Patient Health Summary ---
Author Organization [facility] Address [address] [place] [address] Care Team Providers Care Pipeline Maintenance Supervisor Name Role Phone Justin Bernal MD Primary Care Provider [phone] Note from [facility],non-owned Affiliates and Associated Physician Practices is amultiple site organization consisting of ambulatory clinics and hospital sitesin [place], [place], [place] and [place]. This disclosure is being madepursuant to the Care Everywhere program and may not contain all information available regarding this patient. Last updated 18.[facility] Medications * Be aware that medications may not be up to date on this document. Alwaysverify current medications with the patient. * aspirin EC (Ecotrin) 81 MG tablet Take 1 (one) tablet by mouth once daily * furosemide (Lasix) 20 MG tablet Take 1 (one) tablet by mouth once daily * gabapentin (Neurontin) 100 MG capsule Take 1 (one) capsule by mouth 3 times daily * levETIRAcetam (Keppra) 1000 MG tablet Take 1 (one) tablet by mouth 2 times daily * potassium chloride ER (Klor-Con M) 10 MEQ tablet Take 1 (one) tablet by mouth once daily * phenytoin ER (Dilantin) 100 MG capsule Take 1 (one) capsule by mouth once daily * traZODone (Desyrel) 50 MG tablet Take 1 (one) tablet by mouth at bedtime * acetaminophen CR (Tylenol Arthritis Pain) 650 MG tablet(Started 04/21/2024) Take 1 (one) tablet by mouth every 8 hours as needed for Pain * Vitamin D3, cholecalciferol, 50 MCG (2000 UT) tablet(Started 04/10/2024) Take 1 (one) tablet by mouth once daily * potassium chloride ER (Micro-K) 10 MEQ capsule(Started 05/06/2024) Take 1 (one) capsule by mouth daily with breakfast * rosuvastatin (Crestor) 20 MG tablet(Started 03/29/2024) Take 1 (one) tablet by mouth at bedtime * sulfamethoxazole-trimethoprim (Bactrim DS; Septra DS) 800-160 MG tablet (Started 01/02/2024) Take 1 (one) tablet by mouth 2 times daily * traMADol (Ultram) 50 MG tablet(Started 05/13/2024) Take 1 (one) tablet by mouth every 6 hours as needed for Pain Social History Tobacco Use Types Packs/Day Years Used Date Smoking Tobacco: Never Assessed Sex and Gender Information Value Date Recorded Sex Assigned at Not on file Gender Identity Not on file Sexual Orientation Not on file Care Teams Pipeline Maintenance Supervisor Relationship Specialty Start Date End Date Justin Bernal MD [address] [place] [phone] PCP - General 04/03/18
--- OUTSIDE RECORDS SUMMARY | 2024-10-30 02:34 | XMS_ITS | Referral Summary ---
Author Organization [facility] Address [address] [place] [address] Care Team Providers Care Back Up Machine Operator Name Role Phone Justin Bernal MD Primary Care Provider [phone] Source Comments [facility],non-owned Affiliates and Associated Physician Practices is amultiple site organization consisting of ambulatory clinics and hospital sitesin [place], [place], [place] and [place]. This disclosure is being madepursuant to the Care Everywhere program and may not contain all information available regarding this patient. Last updated 18.[facility] Medications * Be aware that medications may [...] Encounters Date Type Department Care Team (Late Contact Info) Description 01/21/2025 11:00 AM CDT Office Visit [facility] - Neurology [address] [place] [address] Jayshree Amos, INDEPENDENT CONSULTANT-[facility] [address] [place] [address] Care Teams Back Up Machine Operator Relationship Specialty Start Date End Date Justin Benral MD [address] [place] [address] PCP - General 04/03/18
--- OUTSIDE RECORDS SUMMARY | 2024-10-30 02:34 | XMS_ITS | Encounter Summary ---
Author Organization [facility] Address [address] [place] [address] Care Team Providers Care Campaign Associate Name Role Phone Justin Bernal MD Primary Care Provider [phone] Encounter Details Date Type Department Care Team (Latest Contact Info) Description 04/19/2024 Travel Social History Tobacco Use Types Packs/Day Years Used Date Smoking Tobacco: Never Assessed Sex and Gender Information Value Date Recorded Sex Assigned at Not on file Gender Identity Not on file Sexual Orientation Not on file documented as of this encounter Plan of Treatment Upcoming Encounters Date Type Department Care Team (Late st Contact Info) Description 01/21/2025 11:00 AM CDT Office Visit [facility] - Neurology [address] [place] [phone] Jayshree Amos, SHMUEL-SWITCHGEAR REPAIRER [address] [place] [phone] documented as of this encounter Visit Diagnoses Not on filedocumented in this encounter Care Teams Campaign Associate Relationship Specialty Start Date End Date Justin Bernal MD [address] [place] [phone] PCP - General 04/03/18 documented as of this encounter
--- OUTSIDE RECORDS SUMMARY | 2024-10-30 02:34 | XMS_ITS | Encounter Summary ---
Author Organization [facility] Address [address] [place] [address] Care Team Providers Care Industrial Welder Name Role Phone Justin Bernal MD Primary Care Provider [phone] Encounter Details Date Type Department Care Team (Late st Contact Info) Description 05/07/2024 Orders Only [facility] - Orthopedics [address] [place] [phone] Ranjit Lawrence MD [address] [place] [address] [place] [address] Cervicalgia Social History Tobacco Use Types Packs/Day Years [...] Office Visit [facility] - Neurology [address] [place] [phone] Jayshree Amos, SHMUEL-FRONT END APPLICATION DEVELOPER [address] [place] [phone] Scheduled Orders Name Type Priority Associated Diagnoses Orde r Schedule XR CERVICAL SPINE 4 OR 5VW Imaging Routine Cervicalgia 1 Occurrences starting 05/07/2024 until 05/07/2025 documented as of this encounter Visit Diagnoses Diagnosis Cervicalgia- Primary documented in this encounter Care Teams Industrial Welder Relationship Specialty Start Date End Date Justin Bernal MD [address] [place] [phone] PCP - General 04/03/18 documented as of this encounter
--- OUTSIDE RECORDS SUMMARY | 2024-10-30 02:34 | XMS_ITS | Continuity of Care Document ---
Author Organization [facility] Address [address] [place] [address] Phone Care Team Providers Care Pediatric Oncology Nurse Name Role Phone Liliana Rowell Unavailable Unavailable Advance Directives Directive Yes / No Effective Date File Name No Information Encounters Encounter Description Practice Location Reason(s) For Visit Diagnoses Date Provider Providers Copied on Encounter [facility], [address], [place], [place], [id number], [place] tel:[phone] [facility] No Information Lelia Ford. [address] , [address], [place], [place], [place], [place]. tel:[phone] Referring Provider: Kristy Camara, [address], [place], [place], [place]. Family History Family Member Type Diagnosis Age At Onset No Information Payers Payer name Insurance type Covered libertarian ID Authoriza tion(s) No Information Social History Type Description Quantity Date Captured Comments Sex Female Smoking Status No Information Chief Complaint And Reason For Visit No Information Reason For Referral Reason For Referral No Information History Of Present Illness Encounter Date Complaint History Of Prese nt Illness No Information Functional Status Date Functional Assessmen t No Information Instructions Date Instruction Additional Infor mation No Information Assessments Type Assessment Date No Information Patient Care Teams Name Effective Dates (start - stop) Status Members No Information
--- OUTSIDE RECORDS SUMMARY | 2024-10-30 02:35 | XMS_ITS | CONTINUITY OF CARE DOCUMENT ---
Author Name end marino Address Unknown Organization [facility] Address [address] [place] [address] Phone [phone] Care Team Providers Care Wine Bottle Inspector Name Role Phone Pipo GRIFFITHS, Elaina Unavailable ALVIN GRIFFITHS, DEN Unavailable [phone] DEN ESQUIVEL MD Unavailable [phone] PROBLEMS Condition Status Date Provider Notes Chest pain active Bienvenido Keenan Palpitations active Bienvenido Keenan Pericardial effusion - small active Bienvenido Keenan Lower extremity edema, bilateral active Mar kristyn Keenan Seizure active Bienvenido Keenan Hyperlipidemia active Bienvenido Keenan HTN active Bienvenido Keenan CVA active Bienvenido Keenan Family History of Hypertension: active ? Placido Keenan Family History of Hypertension: active ? Placido Keenan ENCOUNTERS Date Type Provider Location Encounter Diag nosis - In-person encounter Office Visit Elaina Foss MD [place] [facility] Lower extremity edema, bilateral - In-person encounter Office Visit Elaina Foss MD [place] [facility] Family History of Hypertension:Family History of Hypertension:CVAHTNHyperlipidemi aSeizureChest painPalpitationsPericardial effusion - small VITAL SIGNS Date Observation Value Provider Body Mass Index (Ratio) 30.82 kg/m2 Placido Keenan blood pressure, diastolic 76 mm[Hg] Tony Lin blood pressure, systolic 100 mm[Hg] Juli rubio Kirkwood oxygen saturation, oximetry 98 % [facility] 16 /min [facility] pulse [facility] 94 /min [facility] weight E&M 191 [lb_av] Jenny Kirkwood height E&M 66 [in_i] Jenny Kirkwood blood pressure, diastolic 80 mm[Hg] Cy ntkasi Frank blood pressure, systolic 120 mm[Hg] Kera donaldo Frank Body Mass Index (Ratio) 30.99 kg/m2 Placido Keenan blood pressure, resting No Kill marcial Kirkwood blood pressure, diastolic 70 mm[Hg] [facility] blood pressure, systolic 100 mm[Hg] Juli rubio Kirkwood oxygen saturation, oximetry 97 % [facility] respiratory rate E&M 16 /min [facility] pulse rate 100 /min [facility] weight E&M 192 [lb_av] [facility] height E&M 66 [in_i] [facility] ALLERGIES No Known Drug Allergies HISTORY OF MEDICATION USE Medication Status Instructions Dates Provider Indications Com ments ASPIRIN ADULT LOW DOSE 81 MG ORAL TABLET DELAYED RELEASE active One Tab By Mouth Daily Bienvenido Keenan COLCHICINE 0.6 MG ORAL CAPSULE active one tab twice daily Bienvenido Keenan FAMOTIDINE 20 MG ORAL TABLET active TK 1 T PO BID UTD Jenny Mirandaam #60, 30 days supply, Prescribed by DEN ESQUIVEL, Filled 02/22/2018 GABAPENTIN 300 MG ORAL CAPSULE active TK 1 C PO TID Jenny Mirandaam #270, 90 days supply, Prescribed by DEN ESQUIVEL, Filled 03/20/2018 CYCLOBENZAPRINE HCL 10 MG ORAL TABLET active TK 1 T PO HS PRN Jenny Mirandaam #90, 90 days supply, Prescribed by DEN ESQUIVEL, Filled 04/19/2018 LEVETIRACETAM 1000 MG ORAL TABLET active TK 1 T PO Q 12 H UTD Jenny Lin #180, 90 days supply, Prescribed by DEN ESQUIVEL, Filled 04/24/2018 ATORVASTATIN CALCIUM 40 MG ORAL TABLET active 1 tab daily Jenny Lin #90, 90 days supply, Filled 06/19/2018 IBUPROFEN 800 MG ORAL TABLET active TK 1 T PO TID PRN Jenny Lin #270, 90 days supply, Prescribed by DEN ESQUIVEL, Filled 04/24/2018 SOCIAL HISTORY Date Observation Value Provider social history reviewed E&M revi ewed - no changes required Bienvenido Keenan social history E&M S moking History: Yann santos has never smoked. Bienvenido Keenan smoking status Never smoker Jenny Glenroy ramírez smoking status Never smoker Blanca Dom santos social history reviewed E&M revi ewed - no changes required Bienvenido Keenan social history E&M S moking History: Yann santos is a former smoker. Bienvenido Keenan number of grandchildren Elaina Foss MD [facility] smoking history, total pack/day 3/4 [facility] cigarette use yes [facility] smoking status Former smoker [facility] FUNCTIONAL STATUS Date Observation Value Provider periodic limb movement index absent (0) Elaina Foss MD FAMILY HISTORY Family Member Condition Father Family History of Co ronary Artery Disease: Father Family History of Hy pertension: Mother Family History of Co ronary Artery Disease: Mother Family History of Hy pertension: INSURANCE PROVIDERS Payer name Policy type / Coverage type Formerly [facility] HEALTHC[facility] AND FAMILY SERVICES Medicaid 0 [id number] [facility] PLAN Medicaid [id number] ADVANCE DIRECTIVES Name Date DISCUSSED - NO DECISION MADE TREATMENT PLAN Date Name Performer Electrophysiology:Or ders: V enous Doppler Bilateral LE - Reflux (CPT-79979) 9 9213 LTD. Complex (CPT-25123) S chedule Followup (*) Bienvenido Keenan Electrophysiology:Hx CVA in 2003, and was seen at [facility]. She states that she lost her vision, had slurred speech, and had L sided weakness. Underwent rehab and physical therapy. Second stroke in 2014, and was seen at [facility]. Similar Sx as from her first stroke, with L sided weakness and slurred speech. Started having intermittent seizures after her strokes, which are controlled. Bienvenido Keenan Electrophysiology:Wi ll check echo in 3 months. Orders: C omplete Echo (CPT-05146) 9 9213 LTD. Complex (CPT-68168) S chedule Followup (*) Her updated medication list for this problem includes: Ibuprofen 800 Mg Oral Tablet (Ibuprofen) ..... Tk 1 t po tid prn Bienvenido Keenan Electrophysiology:Ro utine stress test 07/06/18 was normal with no evidence of ischemia. S tarted on 0.6mg Colchicine BID. S tarted on 81mg ASA daily. Orders: 9 13 LTD. Complex (CPT-16402) S chedule Followup (*) Her updated medication list for this problem includes: Aspirin Adult Low Dose 81 Mg Oral Tablet Delayed Release (Aspirin) ..... One tab by mouth daily Bienvenido Keenan Electrophysiology Bienvenido Ree Electrophysiology:Or ders: M obile Cardiac Tele (CPT-08570) S TR - Routine (CPT-40236) 9 9245 HIGH Complex (CPT-89591) S chedule Followup (*) Bienvenido Keenan Electrophysiology:Or ders: M obile Cardiac Tele (CPT-20086) C omplete Echo (CPT-18371) S TR - Routine (CPT-95631) 9 9245 HIGH Complex (CPT-10607) S chedule Followup (*) Bienvenido Keenan Electrophysiology:Shawna hernandez by PCP. Her updated medication list for this problem includes: Atorvastatin Calcium 40 Mg Oral Tablet (Atorvastatin calcium) ..... 1 tab daily Bienvenido Keenan Electrophysiology:BP today: 100/70 Bienvenido Keenan Electrophysiology:CV A in 2003, and was seen at [facility]. She states that she lost her vision, had slurred speech, and had L sided weakness. Underwent rehab and physical therapy. She states that she had a second stroke in 2014, and was seen at [facility]. She reports having similar Sx as from her first stroke, with L sided weakness and slurred speech. She states that she was [place] [employer] [place] [employer] when this stroke occurred. She reports having intermittent seizures after her strokes, which are controlled. Orders: 9 9245 HIGH Complex (CPT-49766) S chedule Followup (*) Bienvenido Keenan Date Name Complete Echo Venous Doppler Bilat eral LE - Reflux STR - Routine Mobile Cardiac Tele HISTORY OF PROCEDURES Procedure Date Procedure Name Provider Procedure Notes S tatus Schedule Followup Elaina Foss MD in 3 mo completed EKG Elaina Foss MD comp leted Stress EKG Elaina Foss MD comp leted Schedule Followup Elaina Foss MD in 2 wee ks completed EKG Elaina Foss MD comp leted
--- NOTE | 2024-10-31 16:47 | P.DS_ITS ---
DS: Admitting Diagnosis Discharge Date 10/28/24 Admitting Diagnosis cervical myelopathy DS: Discharge Diagnosis Discharge Diagnosis (1) Cervical myelopathy: Code(s): G95.9 - Disease of spinal cord, unspecified Status: Acute (2) Status post cervical arthrodesis: Code(s): Z98.1 - Arthrodesis status Status: Acute DS: Summary Hospital Course Hospital Course: Ms. Campbell is a 59-year-old female with history of cervical myelopathy who presented for surgery on October 23 for posterior cervical decompression and fusion C3-6. Please see the operative note for more details. She was transferred to the floor after surgery. She worked with Physical therapy who recommended discharge to senior living facility. Her drain was removed on postoperative day 1. She remained in the hospital awaiting placement. She developed a fever on postoperative day 3 for whom the hospitalist team Was consulted. There was concern for a UTI, and she was briefly placed on antibio tics. By postoperative day 5, she had improved to the point that therapy cleared her for discharge home which she requested to do. She discharged home on postoperative day 5. Time Spent with Patient Time attestation: Total time spent providing and/or coordinating discharge services: DS: Data Data Completed and Pending Labs on day of discharge: Preliminary micro results at discharge 10/26/24 18:51 Blood Culture - Preliminary Blood 10/26/24 18:59 Blood Culture - Preliminary Blood Discharge Plan Discharge Consulting providers: Silvio Bartlett V.; Fred Kohli Jr.; Shanta Quezada; Raoul Moon; Marielle Rodriguez; Concetta Levine; Chelsey Jo; Iris Rao; Wyatt Navarro Discharging Clinician: Concetta Woods Patient Disposition: Home, Self-Care Activity: other - see discharge instructions Diet: as tolerated Wound Care Instructions: other - see discharge instructions Discharge Instructions: Discharge Instructions Procedure: Posterior cervical decompression and fusion Your doctor removed bone and ligament to decompress your spinal cord and nerve roots, and then placed hardware to stabilize the spine. Here are some instructions to follow upon discharge from the hospital to help in your recovery. Activity: Unless released by your doctor, you should not return to work. You should rest at home and let your body heal. Taking short walks is encouraged, but avoid strenuous exercise. Do not jog, run, lift weights, bicycle, or participate in other exercises unless specifically allowed by your doctor. Most importantly, avoid lifting objects heavier than a telephone book or a carton of milk as this places a strain on your neck. If possible, avoid household activities that involve lifting such as laundry, grocery shopping, or childcare. Try to arrange for help from friends and family for these activities while your neck heals. You should not drive for 7-10 days, until you are both off of narcotics and your neck has loosened up enough to safely check your blind spots. You do not need to keep your incision covered unless you are noticing drainage. You may shower starting on post-operative day 2 (Monday, October 25). After showering, lightly dab your wound dry. Do not take baths or sit in a hot tub or pool until approved by your doctor. You may get your incision wet with soap and water, but do not submerge the incision under water. DO NOT SMOKE TOBACCO. Smoking has been proven to interfere with the normal healing of the bones in your neck. Smoking will dramatically reduce the success rate of your surgery. Diet: You can return to your usual diet, unless instructed otherwise by your doctor. Medications: You should resume taking all of your normal medications unless instructed otherwise by your doctor. You may take Tylenol 1000mg every 6 hours as needed for pain. If your pain is still uncontrolled after Tylenol, then take oxycodone. You may also take flexeril for neck pain and muscle spasms every 8 hours. However, you should not take anti-inflammatory medications (such as Motrin, Advil, ibuprofen, naproxen) unless specifically approved by your doctor. These medications can prevent your bones from healing properly after surgery. If you have questions about your normal medications (for example, those prescribed for high blood pressure), you should contact your primary care doctor. You will be given a prescription for pain medications and possibly a laxative, as pain medications can cause constipation. Take the pain medication as instructed. If your pain is not reasonably controlled by the medications, contact your doctor's office. Follow-up appointment: You should already have a follow-up appointment scheduled with Dr. Woods for removing your stitches in 2 weeks. If you do not have an appointment, call to schedule one. When to call our office: Although your surgery and recovery will likely be uneventful, you may have some residual aches and pains in your neck and/or arms. This is normal and should imp rove in the next few weeks. However, should you experience any of the following, call our office immediately. For medical emergencies, call 911. For urgent calls after hours, please call our exchange at [phone]. 1. Fevers 2. Drainage from your incision, or surrounding redness or swelling 3. Pain that is progressively getting worse and is not relieved by your medications 4. New numbness or weakness 5. Difficulty controlling your bladder 6. Loss of control of your bowels Concetta Woods MD Neurosurgery [place] [address] [place] [address] Patient Instructions: Antibiotic Form Patient Language: Armenian Stand Alone Forms: General Discharge Information Follow-up/Referrals: Concetta Woods MD [Physician] - (call for appointment) Discharge Medications: New cyclobenzaprine 10 mg Tablet 10 mg PO TID PRN (Reason: Muscle Spasms) 10 Days Qty: 30 0RF sennosides-docusate sodium [Senokot-S] 8.6-50 mg Tablet 1 tab PO BID 7 Days Qty: 14 0RF oxycodone 5 mg Tablet 5 mg PO Q6H PRN (Reason: Pain Rated 4-6) 7 Days Qty: 28 0RF Continued trazodone 50 mg tablet 50 mg PO QHS PRN (Reason: sleep) rosuvastatin 20 mg tablet 20 mg PO DAILY furosemide 20 mg tablet 20 mg PO QAM potassium chloride 10 mEq tablet extended release 10 meq PO DAILY phenytoin sodium extended 100 mg capsule 100 mg PO TID levetiracetam 1,000 mg tablet 1,000 mg PO Q12H gabapentin 100 mg capsule 100 mg PO TID Held aspirin [Adult Low Dose Aspirin] 81 mg tablet,delayed release (DR/EC) 81 mg PO DAILY Hold Instructions: Resume on 10/30/24. Patient Comments: Pt to confirm ASA dose instruct w Dr Woods preop tizanidine 4 mg capsule 4 mg PO TID PRN (Reason: muscle spasticity) Qty: 30 3RF Hold Instructions: Resume on 11/04/24. Discontinued tramadol 50 mg tablet 50 mg PO Q6H PRN (Reason: pain) Date of admission: 10/23/24 14:28 Primary Care Provider: BarneyRemington Admitting Provider: Concetta Woods Attending physician on admission: Concetta Woods Condition: Stable
== END 2024-10-28 17:59 | disposition home or self-care (01) | DRG 472 ==
LOC: ANH2MED 14:39
PROVIDERS: Neurological Surgery; Nurse Practitioner Gerontology; Student in an Organized Health Care Education/Training Program; Admitting Provider Neurological Surgery; PCP Internal Medicine Infectious Disease; Visit Provider Neurological Surgery
PROC: 0RG2071 Fusion of 2 or more Cervical Vertebral Joints with Autologous Tissue Substitute, Posterior Approach, Posterior Column, Open Approach (ICD-10-PCS; principal; 2024-10-23 10:00)
DX: M48.02 Spinal stenosis, cervical region (principal); M50.01 Cervical disc disorder with myelopathy, high cervical region; N39.0 Urinary tract infection, site not specified; M43.12 Spondylolisthesis, cervical region; R50.82 Postprocedural fever; M40.202 Unspecified kyphosis, cervical region; E78.5 Hyperlipidemia, unspecified; G40.909 Epilepsy, unspecified, not intractable, without status epilepticus; E66.3 Overweight; Z86.73 Personal history of transient ischemic attack (TIA), and cerebral infarction without residual deficits; Z90.49 Acquired absence of other specified parts of digestive tract; Z90.710 Acquired absence of both cervix and uterus; Z87.891 Personal history of nicotine dependence
CPT/HCPCS: 36415; 71045; 80053; 81001; 83605; 85025; 85027; 86850; 86900; 86901; 87040; 87086; 87181; 97110; 97116; 97162; 97166; 97530; 97535; 99199; A9270; C1713; J0690; J1100; J1171; J1650; J2003; J2250; J2270; J2371; J2405; J2704; J3010; J7030; J7120